=== PATIENT | female | born 1980 | race Caucasian/White ===

== ENCOUNTER 2016-09-07 11:19 | Inpatient (IN) | payer BC, OTHER ==
[2016-09-07] MEDS ORDERED: ONDANSETRON 4 MG/2 ML VIAL IVP STA (11:59)
[2016-09-07] MEDS ORDERED: IV VANCOMYCIN PER PHARMACY 1 EACH MISC MISCELLANE PRN (11:59)
[2016-09-07] MEDS ORDERED: HYDROmorphone 1 MG/ML 1 ML SYRINGE IVP STA (11:59)
[2016-09-07] MEDS ORDERED: SODIUM CHLORIDE 0.9% 1,000 ML IV STA (11:59)
[2016-09-07] MEDS ORDERED: VANCOMYCIN 1,250 MG in SODIUM CHLORIDE 0.9% 250 ML IVPB STA (12:05)
--- NOTE | 2016-09-07 12:16 | ED ---
General Adult HPI - General Chief complaint: Recheck/Abnormal Lab/Rx Stated complaint: CELLULITIS ON ABDOMEN Time Seen by Provider: 09/07/16 11:47 Source: patient, RN notes reviewed Mode of arrival: ambulatory Limitations: no limitations - History of Present Illness Initial comments: Patient 36-year-old female who presents emergency room today with chief complaint of infection to the abdominal wall. Patient does admit that she had a mole removed approximately a month ago by eddy current inspector. She states that she went back to days ago for a revision. She states that he noticed infection starting yesterday. She states that it's gotten worse and is more painful today. Patient states she started antibiotics as Keflex. Patient states she was advised by the eddy current inspector come to the emergency room if symptoms increased. - Related Data Home Medications Medication Instructions Recorded Confirmed Acetaminophen Tab [Tylenol Tab] 650 mg PO Q4H 09/07/16 09/07/16 Levothyroxine Sodium [Synthroid] 150 mcg PO DAILY 09/07/16 09/07/16 Sertraline [Zoloft] 100 mg PO DAILY 09/07/16 09/07/16 Allergies Allergy/AdvReac Type Severity Reaction Status Date / Time bacitracin Allergy Rash/Hives Verified 09/07/16 12:21 [From Neosporin ([id number])] erythromycin base Allergy Rash/Hives Verified 09/07/16 12:21 neomycin Allergy Rash/Hives Verified 09/07/16 12:21 [From Neosporin ([id number])] Penicillins Allergy Rash/Hives Verified 09/07/16 12:21 polymyxin B Allergy Rash/Hives Verified 09/07/16 12:21 [From Neosporin ([id number])] Review of Systems ROS Statement: Those systems with pertinent positive or pertinent negative responses have been documented in the HPI. ROS Other: All systems not noted in ROS Statement are negative. Past Medical History Past Medical History: Cancer, Thyroid Disorder History of Any Multi-Drug Resistant Organisms: None Reported Past Surgical History: Section Additional Past Surgical History / Comment(s): thyroidectomy Past Psychological History: No Psychological Hx Reported Smoking Status: Current every day smoker Past Alcohol Use History: Occasional Past Drug Use History: None Reported General Exam - General Exam Comments Initial Comments: General: The patient is awake and alert, in no distress, and does not appear acutely ill. Eye: Pupils are equal, round and reactive to light, extra-ocular movements are intact. No nystagmus. There is normal conjunctiva bilaterally. No signs of icterus. Ears, nose, mouth and throat: There are moist mucous membranes and no oral lesions. Neck: The neck is supple, there is no tenderness or JVD. Cardiovascular: There is a regular rate and rhythm. No murmur, rub or gallop is appreciated. Respiratory: Lungs are clear to auscultation, respirations are non-labored, breath sounds are equal. No wheezes, stridor, rales, or rhonchi. Gastrointestinal: Bowel sounds. Abdomen soft. No tenderness. No rebound tenderness. No guarding. Patient does have superficial skin infection to the abdominal wall. Incision midline. No drainage or discharge. Area does sanjiv. Musculoskeletal: Normal ROM, no tenderness. Strength 5/5. Sensation intact. Pulses equal bilaterally 2+. Neurological: A&O x 3. CN II-XII intact, There are no obvious motor or sensory deficits. Coordination appears grossly intact. Speech is normal. Skin: Cellulitis to the abdomen wall. Psychiatric: Cooperative, appropriate mood & affect, normal judgment. Limitations: no limitations Course Vital Signs 09/07/16 11:39 Temperature 99.0 F Pulse Rate 99 Respiratory 16 Rate Blood Pressure 129/75 O2 Sat by Pulse 99 Oximetry Medical Decision Making - Medical Decision Making Patient labs reviewed shows 11,000 white count. Patient will be admitted for outpatient treatment failure of the abdominal wall cellulitis. - Lab Data Result diagrams: 09/07/16 12:13 09/07/16 12:13 Lab Results 09/07/16 09/07/16 09/07/16 Range/Units 12:13 12:13 12:13 WBC 11.0 H (3.8-10.6) k/uL RBC 4.69 (3.80-5.40) m/uL Hgb 14.8 (11.4-16.0) gm/dL Hct 44.7 (34.0-46.0) % MCV 95.2 (80.0-100.0) fL MCH 31.5 (25.0-35.0) pg MCHC 33.1 (31.0-37.0) g/dL RDW 12.6 (11.5-15.5) % Plt Count 206 (150-450) k/uL Neutrophils % 81 % Lymphocytes % 12 % Monocytes % 3 % Eosinophils % 2 % Basophils % 0 % Neutrophils # 8.9 H (1.3-7.7) k/uL Lymphocytes # 1.4 (1.0-4.8) k/uL Monocytes # 0.4 (0-1.0) k/uL Eosinophils # 0.3 (0-0.7) k/uL Basophils # 0.0 (0-0.2) k/uL Sodium 143 (137-145) mmol/L Potassium 4.4 (3.5-5.1) mmol/L Chloride 108 H (98-107) mmol/L Carbon Dioxide 27 (22-30) mmol/L Anion Gap 8 mmol/L BUN 7 (7-17) mg/dL Creatinine 0.70 (0.52-1.04) mg/dL Est GFR (MDRD) Af Amer >60 (>60 ml/min/1.73 sqM) Est GFR (MDRD) Non-Af >60 (>60 ml/min/1.73 sqM) Glucose 101 H (74-99) mg/dL Calcium 9.2 (8.4-10.2) mg/dL Total Bilirubin 0.4 (0.2-1.3) mg/dL AST 18 (14-36) U/L ALT 33 (9-52) U/L Alkaline Phosphatase 72 (38-126) U/L Total Protein 7.1 (6.3-8.2) g/dL Albumin 4.2 (3.5-5.0) g/dL Urine Color Light Yellow Urine Appearance Clear (Clear) Urine pH 8.0 (5.0-8.0) Ur Specific [place] 1.003 (1.001-1.035) Urine Protein Negative (Negative) Urine Glucose (UA) Negative (Negative) Urine Ketones Negative (Negative) Urine Blood Negative (Negative) Urine Nitrate Negative (Negative) Urine Bilirubin Negative (Negative) Urine Urobilinogen <2.0 (<2.0) mg/dL Ur Leukocyte Esterase Negative (Negative) Urine HCG, Qual (Not Detectd) 09/07/16 Range/Units 12:13 WBC (3.8-10.6) k/uL RBC (3.80-5.40) m/uL Hgb (11.4-16.0) gm/dL Hct (34.0-46.0) % MCV (80.0-100.0) fL MCH (25.0-35.0) pg MCHC (31.0-37.0) g/dL RDW (11.5-15.5) % Plt Count (150-450) k/uL Neutrophils % % Lymphocytes % % Monocytes % % Eosinophils % % Basophils % % Neutrophils # (1.3-7.7) k/uL Lymphocytes # (1.0-4.8) k/uL Monocytes # (0-1.0) k/uL Eosinophils # (0-0.7) k/uL Basophils # (0-0.2) k/uL Sodium (137-145) mmol/L Potassium (3.5-5.1) mmol/L Chloride (98-107) mmol/L Carbon Dioxide (22-30) mmol/L Anion Gap mmol/L BUN (7-17) mg/dL Creatinine (0.52-1.04) mg/dL Est GFR (MDRD) Af Amer (>60 ml/min/1.73 sqM) Est GFR (MDRD) Non-Af (>60 ml/min/1.73 sqM) Glucose (74-99) mg/dL Calcium (8.4-10.2) mg/dL Total Bilirubin (0.2-1.3) mg/dL AST (14-36) U/L ALT (9-52) U/L Alkaline Phosphatase (38-126) U/L Total Protein (6.3-8.2) g/dL Albumin (3.5-5.0) g/dL Urine Color Urine Appearance (Clear) Urine pH (5.0-8.0) Ur Specific [place] (1.001-1.035) Urine Protein (Negative) Urine Glucose (UA) (Negative) Urine Ketones (Negative) Urine Blood (Negative) Urine Nitrate (Negative) Urine Bilirubin (Negative) Urine Urobilinogen (<2.0) mg/dL Ur Leukocyte Esterase (Negative) Urine HCG, Qual Not Detected (Not Detectd) Disposition Clinical Impression: Abdominal wall cellulitis, Failure of outpatient treatment Disposition: ADMITTED IP TO THIS HOSP Condition: Good Time of Disposition: 13:12
[2016-09-07 12:30] LABS: Basophils % (A) 0 %; CH 32.5; CHCM 34.3; Eosinophils # (A) 0.3 k/uL (0-0.7); Eosinophils % (A) 2 %; HCT 44.7 % (34.0-46.0); HDW 2.28; HGB 14.8 gm/dL (11.4-16.0); Luc % (Auto) 1; Lymphocytes # (A) 1.4 k/uL (1.0-4.8); Lymphocytes % (A) 12 %; MCH 31.5 pg (25.0-35.0); MCHC 33.1 g/dL (31.0-37.0); MCV 95.2 fL (80.0-100.0); Mean Platelet Volume 7.8; Monocytes # (A) 0.4 k/uL (0-1.0); Monocytes % (A) 3 %; Neutrophils # (A) 8.9 k/uL (1.3-7.7); Neutrophils % (A) 81 %; RBC 4.69 m/uL (3.80-5.40); RDW 12.6 % (11.5-15.5); WBC (Perox) 11.06
[2016-09-07 12:32] LABS: Appearance,Urine Clear (Clear); Bilirubin,Urine Negative (Negative); Glucose,Urine (UA) Negative (Negative); Ketones,Urine Negative (Negative); Leukocyte Esterase,Urine Negative (Negative); Nitrite,Urine Negative (Negative); Protein,Urine Negative (Negative); Specific Gravity,Urine 1.003 (1.001-1.035); UA Billing (MACRO vs. MICRO) CHEM; Urobilinogen,Urine <2.0 mg/dL (<2.0)
[2016-09-07 12:36] LABS: ALT 33 U/L (9-52); AST 18 U/L (14-36); Alkaline Phosphatase 72 U/L (38-126); Anion Gap 8 mmol/L; Blood Urea Nitrogen 7 mg/dL (7-17); Calcium 9.2 mg/dL (8.4-10.2); Carbon Dioxide 27 mmol/L (22-30); Chloride 108 mmol/L (98-107); Glucose 101 mg/dL (74-99); Non-African American GFR(MDRD) >60 (>60 ml/min/1.73 sqM); Potassium 4.4 mmol/L (3.5-5.1); Sodium 143 mmol/L (137-145); Total Bilirubin 0.4 mg/dL (0.2-1.3); Total Protein 7.1 g/dL (6.3-8.2)
[2016-09-07] MEDS ORDERED: ONDANSETRON 4 MG/2 ML VIAL IVP PRN (13:13)
[2016-09-07] MEDS ORDERED: SODIUM CHLORIDE 0.9% 1,000 ML IV ONE (13:13)
[2016-09-07] MEDS ORDERED: LORazepam 2 MG/ML SYRINGE IV PRN (13:13)
[2016-09-07] MEDS ORDERED: NALOXONE 0.4 MG/ML 1 ML VIAL IV PRN (13:13)
[2016-09-07] MEDS ORDERED: ACETAMINOPHEN TAB 325 MG TAB PO PRN (13:13)
[2016-09-07 14:21] VITALS: BMI 24.1
[2016-09-07] MEDS: HYDROcodone/APAP 5-325MG 1 EACH TAB PO PRN (14:31)
[2016-09-07] MEDS: HYDROmorphone 1 MG/ML 1 ML SYRINGE IV PRN ×2 (15:31→20:13)
--- NOTE | 2016-09-07 16:37 | P.HPIM ---
History of Present Illness H&P Date: 09/07/16 Chief Complaint: cellulitis 36-year-old female who recently underwent a more mobile and month ago on her abdomen and thereafter went to her color consultant for a wider excision of the lesion around her umbilicus on Friday. Patient was then noted to have some erythema and burning around the incision site and hence went to her color consultant on Friday. Patient was started on kelex and a border was drawn on her abdomen and was told if the erythema gets outside the border patient was to go to the ER. Patient stated that her pain has been stable denies having any associated fevers. Patient denies having any discharge from the incision site. And no worsening swelling is also reported. Denies having any change in bowel habits, no urinary urgency or frequency, no chills, no nausea, no vomiting. Review of Systems All systems: negative (Noted in HPI) Past Medical History Past Medical History: Cancer, Thyroid Disorder Additional Past Medical History / Comment(s): thyroid cancer History of Any Multi-Drug Resistant Organisms: None Reported Past Surgical History: Section Additional Past Surgical History / Comment(s): thyroidectomy Past Psychological History: No Psychological Hx Reported Smoking Status: Current every day smoker Past Alcohol Use History: Occasional Past Drug Use History: None Reported - Past Family History Mother Family Medical History: No Reported History Medications and Allergies Home Medications Medication Instructions Recorded Confirmed Type Acetaminophen Tab [Tylenol Tab] 650 mg PO Q4H 09/07/16 09/07/16 History Levothyroxine Sodium [Synthroid] 150 mcg PO DAILY 09/07/16 09/07/16 History Sertraline [Zoloft] 100 mg PO DAILY 09/07/16 09/07/16 History Allergies Allergy/AdvReac Type Severity Reaction Status Date / Time bacitracin Allergy Rash/Hives Verified 09/07/16 12:21 [From Neosporin ([id number])] erythromycin base Allergy Rash/Hives Verified 09/07/16 12:21 neomycin Allergy Rash/Hives Verified 09/07/16 12:21 [From Neosporin ([id number])] Penicillins Allergy Rash/Hives Verified 09/07/16 12:21 polymyxin B Allergy Rash/Hives Verified 09/07/16 12:21 [From Neosporin ([id number])] Physical Exam Vitals: Vital Signs Temp Pulse Pulse Resp BP BP Pulse Ox 09/07/16 15:45 97.9 F 72 18 125/67 97 09/07/16 14:04 98.1 F 71 18 126/70 100 09/07/16 13:40 97.7 F 74 16 116/75 99 Intake and Output 09/07/16 09/07/16 09/07/16 06:59 14:59 22:59 Other: Weight 65.8 kg Patient Weight 09/08/16 06:59 Weight 65.8 kg Gen. appearance alert oriented 3 in no distress Neck is supple no JVD Lungs good air entry clear to auscultation Heart regular rate and rhythm no murmurs appreciated Abdomen is soft there is a incision inferiorly to the umbilicus which appears intact no underlying induration is noted large area of erythema surrounding the umbilicus slightly warm to touch. Neurologically no focal motor or sensory deficits appreciated. Results CBC & Chem 7: 09/07/16 12:13 09/07/16 12:13 Thrombosis Risk Factor Assmnt - Choose All That Apply Any of the Below Risk Factors Present?: Yes Each Factor Represents 1 point: Oral contraceptives or hormone replacement therapy, Varicose veins Other Risk Factors: No Other congenital or acquired thrombophilia - If yes, enter type in comment: No Thrombosis Risk Factor Assessment Total Risk Factor Score: 2 Thrombosis Risk Factor Assessment Level: Low Risk Assessment and Plan Plan: #1 abdominal wall cellulitis failed outpatient treatment #2 history of skin cancer Plan Patient has tolerated keflex. We'll change antibiotics to IV cefazolin 2 g every 8 hours. If patient shows improvement in the next 24 hours we'll likely discharge the patient on oral keflex. Patient probably has not had enough doses to make an effect on her cellulitis.
[2016-09-07] MEDS: ceFAZolin 2 GM in SODIUM CHLORIDE 0.9% 100 ML IVPB SCH (17:36)
[2016-09-07] MEDS ORDERED: IBUPROFEN 400 MG TAB PO PRN (20:18)
[2016-09-07] MEDS ORDERED: VANCOMYCIN 1,250 MG in SODIUM CHLORIDE 0.9% 250 ML IVPB SCH (21:00)
[2016-09-08] MEDS: HYDROmorphone 1 MG/ML 1 ML SYRINGE IV PRN ×3 (00:18→14:43)
[2016-09-08] MEDS: ceFAZolin 2 GM in SODIUM CHLORIDE 0.9% 100 ML IVPB SCH ×3 (00:19→16:18)
[2016-09-08 07:44] LABS: Basophils % (A) 1 %; CH 32.2; CHCM 33.7; Eosinophils # (A) 0.3 k/uL (0-0.7); Eosinophils % (A) 4 %; HCT 37.7 % (34.0-46.0); HDW 2.29; HGB 12.7 gm/dL (11.4-16.0); Luc # (Auto) 0.18; Luc % (Auto) 3; Lymphocytes # (A) 2.3 k/uL (1.0-4.8); Lymphocytes % (A) 33 %; MCH 32.1 pg (25.0-35.0); MCHC 33.6 g/dL (31.0-37.0); MCV 95.7 fL (80.0-100.0); Monocytes # (A) 0.3 k/uL (0-1.0); Monocytes % (A) 5 %; Neutrophils # (A) 3.8 k/uL (1.3-7.7); Neutrophils % (A) 55 %; RBC 3.94 m/uL (3.80-5.40); RDW 12.6 % (11.5-15.5); WBC 6.9 k/uL (3.8-10.6); WBC (Perox) 7.31
[2016-09-08 07:48] LABS: ALT 31 U/L (9-52); AST 13 U/L (14-36); Alkaline Phosphatase 55 U/L (38-126); Anion Gap 6 mmol/L; Blood Urea Nitrogen 7 mg/dL (7-17); Calcium 8.1 mg/dL (8.4-10.2); Carbon Dioxide 27 mmol/L (22-30); Chloride 108 mmol/L (98-107); Glucose 89 mg/dL (74-99); Non-African American GFR(MDRD) >60 (>60 ml/min/1.73 sqM); Potassium 4.1 mmol/L (3.5-5.1); Sodium 141 mmol/L (137-145); Total Bilirubin 0.3 mg/dL (0.2-1.3); Total Protein 5.6 g/dL (6.3-8.2)
[2016-09-08] MEDS: HYDROcodone/APAP 5-325MG 1 EACH TAB PO PRN ×2 (08:27→16:17)
[2016-09-08 15:05] VITALS: BP 118/71; PULSE 72; RESP 19; TEMP 97.7
--- NOTE | 2016-09-08 19:26 | P.DS ---
Providers Date of admission: 09/07/16 13:13 Expected date of discharge: 09/08/16 Attending physician: Flor Duffy Primary care physician: Stated None Hospital Course: Chief Complaint: cellulitis 36-year-old female who recently underwent a more mobile and month ago on her abdomen and thereafter went to her business analysis specialist for a wider excision of the lesion around her umbilicus on Friday. Patient was then noted to have some erythema and burning around the incision site and hence went to her business analysis specialist on Friday. Patient was started on kelex and a border was drawn on her abdomen and was told if the erythema gets outside the border patient was to go to the ER. Patient stated that her pain has been stable denies having any associated fevers. Patient denies having any discharge from the incision site. And no worsening swelling is also reported. Denies having any change in bowel habits, no urinary urgency or frequency, no chills, no nausea, no vomiting. Review of Systems All systems: negative (Noted in HPI) Past Medical History Past Medical History: Cancer, Thyroid Disorder Additional Past Medical History / Comment(s): thyroid cancer History of Any Multi-Drug Resistant Organisms: None Reported Past Surgical History: Section Additional Past Surgical History / Comment(s): thyroidectomy Past Psychological History: No Psychological Hx Reported Smoking Status: Current every day smoker Past Alcohol Use History: Occasional Past Drug Use History: None Reported - Past Family History Mother Family Medical History: No Reported History Medications and Allergies Home Medications Medication Instructions Recorded Confirmed Type Acetaminophen Tab [Tylenol Tab] 650 mg PO Q4H 09/07/16 09/07/16 History Levothyroxine Sodium [Synthroid] 150 mcg PO DAILY 09/07/16 09/07/16 History Sertraline [Zoloft] 100 mg PO DAILY 09/07/16 09/07/16 History Allergies Allergy/AdvReac Type Severity Reaction Status Date / Time bacitracin Allergy Rash/Hives Verified 09/07/16 12:21 [From Neosporin ([id number])] erythromycin base Allergy Rash/Hives Verified 09/07/16 12:21 neomycin Allergy Rash/Hives Verified 09/07/16 12:21 [From Neosporin ([id number])] Penicillins Allergy Rash/Hives Verified 09/07/16 12:21 polymyxin B Allergy Rash/Hives Verified 09/07/16 12:21 [From Neosporin ([id number])] Physical Exam Vitals: Vital Signs Temp Pulse Pulse Resp BP BP Pulse Ox 09/07/16 15:45 97.9 F 72 18 125/67 97 09/07/16 14:04 98.1 F 71 18 126/70 100 09/07/16 13:40 97.7 F 74 16 116/75 99 Intake and Output 09/07/16 09/07/16 09/07/16 06:59 14:59 22:59 Other: Weight 65.8 kg Patient Weight 09/08/16 06:59 Weight 65.8 kg Gen. appearance alert oriented 3 in no distress Neck is supple no JVD Lungs good air entry clear to auscultation Heart regular rate and rhythm no murmurs appreciated Abdomen is soft there is a incision inferiorly to the umbilicus which appears intact no underlying induration is noted large area of erythema surrounding the umbilicus slightly warm to touch. significantly improved from admission currently inside the marked area. Neurologically no focal motor or sensory deficits appreciated. Re Assessment and Plan Plan: #1 abdominal wall cellulitis failed outpatient treatment #2 history of skin cancer D/c home on keflex fro 10 days. Follow up with Dermatology Dr Shepard Patient Condition at Discharge: Good Plan - Discharge Summary New Discharge Prescriptions: Cephalexin [Keflex] 250 mg PO AC-TID #10 capsule HYDROcodone/APAP 5-325MG [[place] 5-325] 1 each PO Q4HR PRN #30 tab PRN Reason: Moderate Pain Discharge Medication List Acetaminophen Tab [Tylenol] 650 mg PO Q4H 09/07/16 [History] Levothyroxine Sodium [Synthroid] 150 mcg PO DAILY 09/07/16 [History] Sertraline [Zoloft] 100 mg PO DAILY 09/07/16 [History] Cephalexin [Keflex] 250 mg PO AC-TID #10 capsule 09/08/16 [Rx] HYDROcodone/APAP 5-325MG [[place] 5-325] 1 each PO Q4HR PRN #30 tab 09/08/16 [Rx] Follow up Appointment(s)/Referral(s): Meghana Shepard MD [REFERRING] - 1 Week None,Stated [Primary Care Provider] - 1-2 days Patient Instructions/Handouts: Cellulitis (DC) Activity/Diet/Wound Care/Special Instructions: Call your Dr if symptoms return or worsen or you start experiencing fevers. Discharge Disposition: HOME SELF-CARE
== END 2016-09-08 17:43 | disposition home or self-care (01) | DRG 603 ==
LOC: EC 11:19 → 6PED 13:13
PROVIDERS: ADMIT Hospitalist; ATTEND Hospitalist
DX: L03.311 Cellulitis of abdominal wall (principal); E89.0 Postprocedural hypothyroidism; I83.90 Asymptomatic varicose veins of unspecified lower extremity; F17.200 Nicotine dependence, unspecified, uncomplicated; Z88.1 Allergy status to other antibiotic agents; Z88.0 Allergy status to penicillin; Z85.850 Personal history of malignant neoplasm of thyroid; Z85.828 Personal history of other malignant neoplasm of skin; Z98.890 Other specified postprocedural states; Z79.899 Other long term (current) drug therapy
CPT/HCPCS: 36415; 80053; 81003; 81025; 85025; 87040; 87086; 96361; 96365; 96375; 99284

== ENCOUNTER → 2017-12-26 | Outpatient (CLI) | payer OTHER ==
--- NOTE | 2017-12-26 13:03 | US ---
EXAMINATION TYPE: US pelvis complete transvag DATE OF EXAM: 12/26/2017 COMPARISON: NONE CLINICAL HISTORY: N93.0 POSTCOITAL BLEEDING,N92.1 MENORRHAGIA. TECHNIQUE: Transvaginal (TV) and Transabdominal (TA) . Transabdominal sonographic images of the pel vis were acquired. Transvaginal sonographic images were medically necessary to better assess the fol lowing anatomy: uterus and ovaries. Date of LMP: 2 wks ago, still spotting EXAM MEASUREMENTS: Uterus: 7.4 x 4.4 x 4.6 cm Endometrial Stripe: 0.4 cm Right Ovary: 4.5 x 2.2 x 2.8 cm Left Ovary: 5.4 x 3.6 x 3.9 cm 1. Uterus: Retroverted wnl 2. Endometrium: wnl 3. Right Ovary: rov is surrounded by large mixed heterogeneous vascular tissue measuring about 7.2 x 3.3 x 6.0cm 4. Left Ovary: left ovary is not completely normal in appearance either; within the luis is a 2.8cm c omplex cystic with leveling debris structure; both ovaries demonstrate increased vascularity 5. Bilateral Adnexa: see above 6. Posterior cul-de-sac: no free fluid seen Retroverted uterus is seen. No free fluid is seen in pelvic cul-de-sac. Right ovary is prominent in size with heterogeneous solid and cystic tissue. Left ovary is also promi nent with heterogeneous solid and cystic tissue. Bilateral vascularity is seen. Some oval anechoic ar eas are noted bilaterally. IMPRESSION: Prominent hypervascular ovaries, advise short-term ultrasound follow-up in 6 weeks' time to reassess.
== END | disposition home or self-care (01) ==
LOC: RADUSWWP 12:11
PROVIDERS: ATTEND Obstetrics & Gynecology
DX: N93.0 Postcoital and contact bleeding (principal); N92.1 Excessive and frequent menstruation with irregular cycle
CPT/HCPCS: 76830; 76856

== ENCOUNTER 2018-04-09 17:12 | Inpatient (IN) | payer OTHER ==
[2018-04-09] MEDS ORDERED: MORPHINE SULFATE 4 MG/ML SYRINGE IVP STA (18:06)
[2018-04-09] MEDS ORDERED: SODIUM CHLORIDE 0.9% 500 ML IV ONE (18:06)
[2018-04-09 18:22] LABS: Basophils # (A) 0.1 k/uL (0-0.2); Basophils % (A) 0 %; Eosinophils # (A) 0.3 k/uL (0-0.7); Eosinophils % (A) 1 %; HCT 40.6 % (34.0-46.0); HGB 13.4 gm/dL (11.4-16.0); Lymphocytes % (A) 5 %; MCHC 32.9 g/dL (31.0-37.0); MCV 91.2 fL (80.0-100.0); Mean Platelet Volume 7.7; Monocytes # (A) 0.4 k/uL (0-1.0); Monocytes % (A) 2 %; Neutrophils % (A) 91 %; Platelet Count 213 k/uL (150-450); RBC 4.45 m/uL (3.80-5.40); RDW 13.2 % (11.5-15.5); WBC 20.8 k/uL (3.8-10.6)
[2018-04-09 18:23] LABS: Appearance,Urine Clear (Clear); Bacteria,Urine Rare /hpf; Bilirubin,Urine Negative (Negative); Blood,Urine Negative (Negative); Color,Urine Light Yellow; Glucose,Urine (UA) Negative (Negative); Ketones,Urine 1+ (Negative); Leukocyte Esterase,Urine Small (Negative); Mucus,Urine Rare /hpf; Nitrite,Urine Negative (Negative); PH, Urine 7.5 (5.0-8.0); Protein,Urine Negative (Negative); RBC,Urine 1 /hpf (0-5); Specific Gravity,Urine 1.005 (1.001-1.035); Squamous Epithelial Cell,Urine 1 /hpf (0-4); Urobilinogen,Urine <2.0 mg/dL (<2.0); WBC,Urine 2 /hpf (0-5)
[2018-04-09 18:31] LABS: ALT 24 U/L (9-52); AST 17 U/L (14-36); Albumin 3.8 g/dL (3.5-5.0); Alkaline Phosphatase 75 U/L (38-126); Amylase 44 U/L (30-110); Anion Gap 7 mmol/L; Blood Urea Nitrogen 8 mg/dL (7-17); Calcium 8.4 mg/dL (8.4-10.2); Carbon Dioxide 22 mmol/L (22-30); Chloride 110 mmol/L (98-107); Glucose 89 mg/dL (74-99); Lipase 57 U/L (23-300); Potassium 3.9 mmol/L (3.5-5.1); Sodium 139 mmol/L (137-145); Total Bilirubin 0.5 mg/dL (0.2-1.3); Total Protein 6.5 g/dL (6.3-8.2)
--- NOTE | 2018-04-09 18:39 | ED ---
General Adult HPI - General Chief complaint: Abdominal Pain Stated complaint: ABDOMINAL PAIN Time Seen by Provider: 04/09/18 17:59 Source: patient, RN notes reviewed, old records reviewed Mode of arrival: ambulatory Limitations: no limitations - History of Present Illness Initial comments: 38-year-old female presenting with 1 day of generalized abdominal pain. Patient denies any nausea or vomiting. She complains of some distention and generalized pain. This pain is worsened over the past 12 hours. She does report several episodes of diarrhea although she has chronic diarrhea no change from baseline. No rectal bleeding. Patient is found to have fever in triage. Denies dysuria. Denies vaginal bleeding. She has had hysterectomy and laparoscopic abdominal surgery for endometriosis. She still has her gallbladder and appendix. - Related Data Home Medications Medication Instructions Recorded Confirmed Levothyroxine Sodium [Synthroid] 150 mcg PO DAILY 09/07/16 04/09/18 Sertraline [Zoloft] 100 mg PO DAILY 09/07/16 04/09/18 Norethindrone-E.estradiol-Iron 1 tab PO HS 04/09/18 04/09/18 [Microgestin 24 Fe 1 mg-20 Mcg] Allergies Allergy/AdvReac Type Severity Reaction Status Date / Time bacitracin Allergy Rash/Hives Verified 04/09/18 18:11 [From Neosporin ([id number])] erythromycin base Allergy Rash/Hives Verified 04/09/18 18:11 neomycin Allergy Rash/Hives Verified 04/09/18 18:11 [From Neosporin ([id number])] Penicillins Allergy Rash/Hives Verified 04/09/18 18:11 polymyxin B Allergy Rash/Hives Verified 04/09/18 18:11 [From Neosporin ([id number])] Review of Systems ROS Statement: Those systems with pertinent positive or pertinent negative responses have been documented in the HPI. ROS Other: All systems not noted in ROS Statement are negative. Past Medical History Past Medical History: Cancer, Thyroid Disorder Additional Past Medical History / Comment(s): thyroid cancer History of Any Multi-Drug Resistant Organisms: None Reported Past Surgical History: Section Additional Past Surgical History / Comment(s): thyroidectomy Past Psychological History: No Psychological Hx Reported Smoking Status: Current every day smoker Past Alcohol Use History: Occasional Past Drug Use History: None Reported - Past Family History Mother Family Medical History: No Reported History General Exam Limitations: no limitations General appearance: alert, in no apparent distress Head exam: Present: atraumatic, normocephalic Eye exam: Present: normal appearance, PERRL ENT exam: Present: normal exam Neck exam: Present: normal inspection. Absent: tenderness, meningismus Respiratory exam: Present: normal lung sounds bilaterally. Absent: respiratory distress, wheezes Cardiovascular Exam: Present: regular rate, normal rhythm GI/Abdominal exam: Present: soft, distended, tenderness (Generalized tenderness to palpation, worse in the right lower quadrant). Absent: guarding, rebound Extremities exam: Present: normal inspection, normal capillary refill. Absent: pedal edema Neurological exam: Present: alert, oriented X3, CN II-XII intact. Absent: motor sensory deficit Psychiatric exam: Present: normal affect, normal mood Skin exam: Present: warm, dry, intact. Absent: cyanosis, diaphoretic Course Vital Signs 04/09/18 04/09/18 04/09/18 17:42 19:30 20:20 Temperature 100.3 F H 98.9 F 98.3 F Pulse Rate 87 88 91 Respiratory 20 16 16 Rate Blood Pressure 142/83 154/79 130/83 O2 Sat by Pulse 100 100 99 Oximetry Medical Decision Making - Medical Decision Making 38 yo female with generalized abdominal pain and low-grade fever. Patient has generalized abdominal pain although this is localized to the right lower quadrant. Laboratory studies reveal significantly elevated white blood cell count 20.8. Normal electrolytes. Urinalysis is positive for ketones. CT is obtained, significant for dilated fluid-filled appendix at 8 mm. This is likely early appendicitis. Case discussed with Dr. East, for possible surgical intervention. He will take patient to the operating room this evening. Patient declines on-call surgeon, requesting alternate. Dr. East will accept. - Lab Data Result diagrams: 04/09/18 18:10 04/09/18 18:10 Lab Results 04/09/18 04/09/18 04/09/18 Range/Units 18:10 18:10 18:10 WBC 20.8 H (3.8-10.6) k/uL RBC 4.45 (3.80-5.40) m/uL Hgb 13.4 (11.4-16.0) gm/dL Hct 40.6 (34.0-46.0) % MCV 91.2 (80.0-100.0) fL MCH 30.0 (25.0-35.0) pg MCHC 32.9 (31.0-37.0) g/dL RDW 13.2 (11.5-15.5) % Plt Count 213 (150-450) k/uL Neutrophils % 91 % Lymphocytes % 5 % Monocytes % 2 % Eosinophils % 1 % Basophils % 0 % Neutrophils # 19.0 H (1.3-7.7) k/uL Lymphocytes # 1.0 (1.0-4.8) k/uL Monocytes # 0.4 (0-1.0) k/uL Eosinophils # 0.3 (0-0.7) k/uL Basophils # 0.1 (0-0.2) k/uL Sodium 139 (137-145) mmol/L Potassium 3.9 (3.5-5.1) mmol/L Chloride 110 H (98-107) mmol/L Carbon Dioxide 22 (22-30) mmol/L Anion Gap 7 mmol/L BUN 8 (7-17) mg/dL Creatinine 0.57 (0.52-1.04) mg/dL Est GFR (CKD-EPI)AfAm >90 (>60 ml/min/1.73 sqM) Est GFR (CKD-EPI)NonAf >90 (>60 ml/min/1.73 sqM) Glucose 89 (74-99) mg/dL Plasma Lactic Acid Eren (0.7-2.0) mmol/L Calcium 8.4 (8.4-10.2) mg/dL Total Bilirubin 0.5 (0.2-1.3) mg/dL AST 17 (14-36) U/L ALT 24 (9-52) U/L Alkaline Phosphatase 75 (38-126) U/L Total Protein 6.5 (6.3-8.2) g/dL Albumin 3.8 (3.5-5.0) g/dL Amylase 44 (30-110) U/L Lipase 57 (23-300) U/L Urine Color Urine Appearance (Clear) Urine pH (5.0-8.0) Ur Specific [place] (1.001-1.035) Urine Protein (Negative) Urine Glucose (UA) (Negative) Urine Ketones (Negative) Urine Blood (Negative) Urine Nitrite (Negative) Urine Bilirubin (Negative) Urine Urobilinogen (<2.0) mg/dL Ur Leukocyte Esterase (Negative) Urine RBC (0-5) /hpf Urine WBC (0-5) /hpf Ur Squamous Epith Cells (0-4) /hpf Urine Bacteria (None) /hpf Urine Mucus (None) /hpf Urine HCG, Qual Not Detected (Not Detectd) 04/09/18 04/09/18 Range/Units 18:10 18:59 WBC (3.8-10.6) k/uL RBC (3.80-5.40) m/uL Hgb (11.4-16.0) gm/dL Hct (34.0-46.0) % MCV (80.0-100.0) fL MCH (25.0-35.0) pg MCHC (31.0-37.0) g/dL RDW (11.5-15.5) % Plt Count (150-450) k/uL Neutrophils % % Lymphocytes % % Monocytes % % Eosinophils % % Basophils % % Neutrophils # (1.3-7.7) k/uL Lymphocytes # (1.0-4.8) k/uL Monocytes # (0-1.0) k/uL Eosinophils # (0-0.7) k/uL Basophils # (0-0.2) k/uL Sodium (137-145) mmol/L Potassium (3.5-5.1) mmol/L Chloride (98-107) mmol/L Carbon Dioxide (22-30) mmol/L Anion Gap mmol/L BUN (7-17) mg/dL Creatinine (0.52-1.04) mg/dL Est GFR (CKD-EPI)AfAm (>60 ml/min/1.73 sqM) Est GFR (CKD-EPI)NonAf (>60 ml/min/1.73 sqM) Glucose (74-99) mg/dL Plasma Lactic Acid Eren 1.0 (0.7-2.0) mmol/L Calcium (8.4-10.2) mg/dL Total Bilirubin (0.2-1.3) mg/dL AST (14-36) U/L ALT (9-52) U/L Alkaline Phosphatase (38-126) U/L Total Protein (6.3-8.2) g/dL Albumin (3.5-5.0) g/dL Amylase (30-110) U/L Lipase (23-300) U/L Urine Color Light Yellow Urine Appearance Clear (Clear) Urine pH 7.5 (5.0-8.0) Ur Specific [place] 1.005 (1.001-1.035) Urine Protein Negative (Negative) Urine Glucose (UA) Negative (Negative) Urine Ketones 1+ H (Negative) Urine Blood Negative (Negative) Urine Nitrite Negative (Negative) Urine Bilirubin Negative (Negative) Urine Urobilinogen <2.0 (<2.0) mg/dL Ur Leukocyte Esterase Small H (Negative) Urine RBC 1 (0-5) /hpf Urine WBC 2 (0-5) /hpf Ur Squamous Epith Cells 1 (0-4) /hpf Urine Bacteria Rare H (None) /hpf Urine Mucus Rare H (None) /hpf Urine HCG, Qual (Not Detectd) Disposition Clinical Impression: Acute appendicitis Disposition: ADMITTED IP TO THIS [facility] Condition: Stable Is patient prescribed a controlled substance at d/c from ED?: No Referrals: Abhishek Tristan MD [Primary Care Provider] - 1-2 days Decision to Admit Reason: Admit from EC Decision Date: 04/09/18 Decision Time: 19:45
--- NOTE | 2018-04-09 19:42 | CT ---
EXAMINATION TYPE: CT abdomen pelvis w con DATE OF EXAM: 04/09/2018 COMPARISON: None HISTORY: ABDOMINAL PAIN X1 DAY CT DLP: 441.9 mGycm Automated exposure control for dose reduction was used. TECHNIQUE: Helical acquisition of images was performed from the lung bases through the pelvis. CONTRAST: Performed without Oral Contrast and with IV Contrast, patient injected with 100 mL of Isovue 300. FINDINGS: The lung bases are clear. There is no pleural effusion. Heart size is normal. Liver spleen pancreas gallbladder appear normal. Bile ducts are not dilated. There is no adrenal mass . Kidneys show satisfactory contrast opacification. There is no hydronephrosis. There is no retroperi toneal adenopathy. There is some minimal free fluid in the pelvis. Bladder distends smoothly. Uterus is retroverted. There is mild wall thickening of the rectosigmoid colon. There is no evidence of dive rticulosis. The terminal ileum appears normal. The appendix is fluid-filled and distended to 8 mm. IMPRESSION: APPENDIX IS FLUID-FILLED AND MEASURES 8 MM. THIS IS SOMEWHAT SUSPICIOUS FOR APPENDICITIS. CLINICAL CO RRELATION NEEDED. THERE IS MILD WALL THICKENING OF THE RECTOSIGMOID COLON SUGGESTIVE OF A NONSPECIFIC COLITIS. MINIMAL FREE FLUID IN THE CUL-DE-SAC..
[2018-04-09] MEDS ORDERED: KETOROLAC 30 MG/ML 1 ML VIAL IVP STA (19:54)
[2018-04-09] MEDS ORDERED: LEVOFLOXACIN 500MG-D5W PMX 500 MG in DEXTROSE/WATER 1 100ML.BAG IVPB STA (19:54)
[2018-04-09] MEDS: SODIUM CHLORIDE 0.9% 1,000 ML IV SCH (20:19)
[2018-04-09] MEDS ORDERED: metroNIDAZOLE-NS PMX 500 MG in SALINE 1 100ML.BAG IVPB STA (20:23)
[2018-04-09] MEDS ORDERED: NALOXONE 0.4 MG/ML 1 ML VIAL IV PRN ×2 (20:24→22:57)
[2018-04-09 20:39] LABS: Partial Thromboplastin Time 23.6 sec (22.0-30.0); Prothrombin Time 9.7 sec (9.0-12.0)
--- NOTE | 2018-04-09 21:19 | P.GSHP ---
History of Present Illness H&P Date: 04/09/18 38-year-old female presents to the emergency department with complaints of abdominal pain. She states that the abdominal pain began 24 hours ago and was generalized. She states that the pain seemed to localize to the right lower quadrant. She states that she has had no appetite and has not eaten in approximately 24 hours. She states she has had some nausea but no emesis episodes. She states that she did have a subjective fever but is unsure. She denies any chest pain or shortness of breath. She states she has not had this pain previously. She states that she has had previous abdominal surgery with laparoscopy for endometriosis. She states that this pain does not feel like endometriosis pain. Workup was completed in the emergency department and the patient does have leukocytosis of [address] of the abdomen did show a thickened appendix with some free fluid in the pelvis. This is very suspicious for appendicitis. - Review of Systems All systems: negative Past Medical History Past Medical History: Cancer, Thyroid Disorder Additional Past Medical History / Comment(s): thyroid cancer History of Any Multi-Drug Resistant Organisms: None Reported Past Surgical History: Section Additional Past Surgical History / Comment(s): thyroidectomy Past Psychological History: No Psychological Hx Reported Smoking Status: Current every day smoker Past Alcohol Use History: Occasional Past Drug Use History: None Reported - Past Family History Mother Family Medical History: No Reported History Medications and Allergies Home Medications Medication Instructions Recorded Confirmed Type Levothyroxine Sodium [Synthroid] 150 mcg PO DAILY 09/07/16 04/09/18 History Sertraline [Zoloft] 100 mg PO DAILY 09/07/16 04/09/18 History Norethindrone-E.estradiol-Iron 1 tab PO HS 04/09/18 04/09/18 History [Microgestin 24 Fe 1 mg-20 Mcg] Allergies Allergy/AdvReac Type Severity Reaction Status Date / Time bacitracin Allergy Rash/Hives Verified 04/09/18 18:11 [From Neosporin ([id number])] erythromycin base Allergy Rash/Hives Verified 04/09/18 18:11 neomycin Allergy Rash/Hives Verified 04/09/18 18:11 [From Neosporin ([id number])] Penicillins Allergy Rash/Hives Verified 04/09/18 18:11 polymyxin B Allergy Rash/Hives Verified 04/09/18 18:11 [From Neosporin ([id number])] Surgical - Exam Osteopathic Statement: *. No significant issues noted on an osteopathic structural exam other than those noted in the History and Physical/Consult. Vital Signs Temp Pulse Resp BP Pulse Ox 100.3 F H 87 20 142/83 100 04/09/18 17:42 04/09/18 17:42 04/09/18 17:42 04/09/18 17:42 04/09/18 17:42 - General well nourished, no distress - Eyes PERRL, normal ocular movement - ENT normal mucosa, no hearing loss - Neck trachea midline - Respiratory normal respiratory effort - Abdomen Soft, tender to palpation in the right lower quadrant, nondistended, no rebound , no guarding - Neurologic normal coordination, normal sensation - Psychiatric oriented to time, oriented to person, oriented to place, speech is normal, memory intact Results - Labs 04/09/18 18:10 04/09/18 18:10 Abnormal Lab Results - Last 24 Hours (Table) 04/09/18 04/09/18 04/09/18 Range/Units 18:10 18:10 18:10 WBC 20.8 H (3.8-10.6) k/uL Neutrophils # 19.0 H (1.3-7.7) k/uL Chloride 110 H (98-107) mmol/L Urine Ketones 1+ H (Negative) Ur Leukocyte Esterase Small H (Negative) Urine Bacteria Rare H (None) /hpf Urine Mucus Rare H (None) /hpf Diabetes panel 04/09/18 Range/Units 18:10 Sodium 139 (137-145) mmol/L Potassium 3.9 (3.5-5.1) mmol/L Chloride 110 H (98-107) mmol/L Carbon Dioxide 22 (22-30) mmol/L BUN 8 (7-17) mg/dL Creatinine 0.57 (0.52-1.04) mg/dL Glucose 89 (74-99) mg/dL Calcium 8.4 (8.4-10.2) mg/dL AST 17 (14-36) U/L ALT 24 (9-52) U/L Alkaline Phosphatase 75 (38-126) U/L Total Protein 6.5 (6.3-8.2) g/dL Albumin 3.8 (3.5-5.0) g/dL Calcium panel 04/09/18 Range/Units 18:10 Calcium 8.4 (8.4-10.2) mg/dL Albumin 3.8 (3.5-5.0) g/dL Pituitary panel 04/09/18 Range/Units 18:10 Sodium 139 (137-145) mmol/L Potassium 3.9 (3.5-5.1) mmol/L Chloride 110 H (98-107) mmol/L Carbon Dioxide 22 (22-30) mmol/L BUN 8 (7-17) mg/dL Creatinine 0.57 (0.52-1.04) mg/dL Glucose 89 (74-99) mg/dL Calcium 8.4 (8.4-10.2) mg/dL Adrenal panel 04/09/18 Range/Units 18:10 Sodium 139 (137-145) mmol/L Potassium 3.9 (3.5-5.1) mmol/L Chloride 110 H (98-107) mmol/L Carbon Dioxide 22 (22-30) mmol/L BUN 8 (7-17) mg/dL Creatinine 0.57 (0.52-1.04) mg/dL Glucose 89 (74-99) mg/dL Calcium 8.4 (8.4-10.2) mg/dL Total Bilirubin 0.5 (0.2-1.3) mg/dL AST 17 (14-36) U/L ALT 24 (9-52) U/L Alkaline Phosphatase 75 (38-126) U/L Total Protein 6.5 (6.3-8.2) g/dL Albumin 3.8 (3.5-5.0) g/dL - Imaging CT scan - abdomen: report reviewed, image reviewed CT scan - chest: report reviewed, image reviewed (CT of the abdomen and pelvis reviewed, dilated appendix noted with some fluid noted around the area) Assessment and Plan (1) Acute appendicitis Narrative/Plan: 38-year-old female with acute appendicitis We'll begin antibiotics Keep patient nothing by mouth Begin IV fluid resuscitation Plan for OR for laparoscopic appendectomy Current Visit: Yes Status: Acute Code(s): K35.80 - UNSPECIFIED ACUTE APPENDICITIS SNOMED Code(s): 22009915
[2018-04-09] MEDS ORDERED: ACETAMINOPHEN IV (For NPO) 1,000 MG in EMPTY BAG 1 BAG IVPB STA (21:26)
[2018-04-09] MEDS ORDERED: NEOSTIGMINE 1 MG/ML 10 ML VIAL ONE (21:46)
[2018-04-09] MEDS ORDERED: PROPOFOL 10 MG/ML 20 ML VIAL IV ONE (21:46)
[2018-04-09] MEDS ORDERED: SODIUM CHLORIDE 0.9% 1,000 ML IV ONE (21:46)
[2018-04-09] MEDS ORDERED: SUCCINYLCHOLINE CHLORIDE 100 MG/5 ML SYR IV ONE (21:46)
[2018-04-09] MEDS ORDERED: MIDAZOLAM 2 MG/2 ML VIAL ONE (21:46)
[2018-04-09] MEDS ORDERED: ONDANSETRON 4 MG/2 ML VIAL ONE (21:46)
[2018-04-09] MEDS ORDERED: GLYCOPYRROLATE 0.2 MG/ML 2 ML VIAL ONE (21:46)
[2018-04-09] MEDS ORDERED: HEPARIN SODIUM,PORCINE 5,000 UNIT/ML 1 ML VIAL ONE (21:46)
[2018-04-09] MEDS ORDERED: LIDOCAINE 1% INJ 10MG/ML (20 ML MDV) ONE (21:46)
[2018-04-09] MEDS ORDERED: fentaNYL (PF) 50 MCG/ML 2 ML AMP ONE (21:46)
[2018-04-09] MEDS ORDERED: DEXAMETHASONE SOD PHOS (MDV) 100 MG/10 ML VIAL ONE (21:46)
[2018-04-09] MEDS ORDERED: ROCURONIUM BROMIDE 10 MG/ML 10 ML VIAL IV ONE (21:46)
[2018-04-09] MEDS ORDERED: HYDROmorphone (PF) 1 MG/ML ONE (21:46)
[2018-04-09] MEDS ORDERED: BUPIVACAIN-EPI 0.5%-1:200,000 30 ML VIAL SQ ONE ×2 (22:05)
--- NOTE | 2018-04-09 22:57 | P.OP ---
Date of Procedure: 04/09/18 Preoperative Diagnosis: Acute appendicitis Postoperative Diagnosis: Acute appendicitis Procedure(s) Performed: Laparoscopic appendectomy Anesthesia: JOSÉ Surgeon: Jalyn East Pathology: other (Appendix) Condition: stable Disposition: floor Indications for Procedure: 38-year-old female presented to the emergency department with 24 hours of abdominal pain that was specific to the right lower quadrant. On workup, the patient was found to have acute appendicitis. Secondary to this, the patient was planned to have a laparoscopic appendectomy. Risks, benefits and alternatives were provided to the patient. The patient did provide consent prior to attending the operating suite. Operative Findings: Injected, erythematous, superlative appendix Appendix was densely adhered to right abdominal wall and adnexa Description of Procedure: The patient was brought into the operating suite and placed in supine position on the operating table. Sedation was provided by anesthesia and the patient underwent endotracheal intubation. The patient was then prepped and draped in regular sterile fashion. A super umbilical incision was made dissection was carried to the fascia the fascia was incised and a 12 mm port was placed. Pneumoperitoneum was then achieved. 2 additional 5 mm ports were placed. One was placed in left lower quadrant. One was placed in the suprapubic region. The patient was then positioned appropriately. The appendix was clearly visualized and was noted to be injected and inflamed. It was also noted to be thickened and densely adhered to the right abdominal wall into the adnexa. Blunt dissection was used to free the appendix from the surrounding structures. A window was created between the appendix and the mesoappendix at the base of the appendix. A stapler device was fired across the base of the appendix. Hemostasis was maintained. A LigaSure device was then used to dissect the appendix free from the mesoappendix. Hemostasis was again maintained. The appendix was then removed from the abdomen in an Endo Catch bag. Copious muss irrigation was used in the right lower quadrant and pelvic region. Pneumoperitoneum was then released. The fascia at the supraumbilical incision site was closed with 0 Vicryl suture in interrupted fashion. All skin incisions were closed with 4-0 Vicryl subcuticular suture. The patient was then awakened in the operating suite and taken to postanesthesia care unit in stable condition.
[2018-04-09] MEDS: HYDROmorphone 1 MG/ML 1 ML SYRINGE IVP ONE ×2 (23:01→23:06)
[2018-04-09] MEDS ORDERED: MORPHINE SULFATE 2 MG/ML SYRINGE IVP PRN (23:02)
[2018-04-09 23:28] VITALS: RESP 16
[2018-04-10] MEDS: KETOROLAC 30 MG/ML 1 ML VIAL IVP SCH ×3 (00:04→11:01)
[2018-04-10] MEDS: HEPARIN SODIUM,PORCINE 5,000 UNIT/ML 1 ML VIAL SQ SCH ×2 (00:36→09:36)
[2018-04-10] MEDS: HYDROcodone/APAP 5-325MG 1 EACH TAB PO PRN ×2 (01:54→08:46)
[2018-04-10] MEDS: metroNIDAZOLE-NS PMX 500 MG in SALINE 1 100ML.BAG IVPB SCH ×2 (05:04→12:20)
[2018-04-10 07:07] LABS: Basophils % (A) 0 %; Eosinophils % (A) 0 %; HCT 36.6 % (34.0-46.0); HGB 12.2 gm/dL (11.4-16.0); Lymphocytes # (A) 0.4 k/uL (1.0-4.8); Lymphocytes % (A) 3 %; MCH 30.8 pg (25.0-35.0); MCHC 33.3 g/dL (31.0-37.0); MCV 92.6 fL (80.0-100.0); Mean Platelet Volume 8.4; Monocytes # (A) 0.1 k/uL (0-1.0); Monocytes % (A) 1 %; Neutrophils # (A) 11.9 k/uL (1.3-7.7); Neutrophils % (A) 96 %; Platelet Count 182 k/uL (150-450); RBC 3.95 m/uL (3.80-5.40); RDW 13.2 % (11.5-15.5); WBC 12.4 k/uL (3.8-10.6)
[2018-04-10 07:21] VITALS: BP 113/55; PULSE 74; TEMP 98.3
[2018-04-10 07:31] LABS: Anion Gap 7 mmol/L; Blood Urea Nitrogen 7 mg/dL (7-17); Calcium 7.6 mg/dL (8.4-10.2); Carbon Dioxide 20 mmol/L (22-30); Chloride 112 mmol/L (98-107); Glucose 111 mg/dL (74-99); Potassium 4.4 mmol/L (3.5-5.1); Sodium 139 mmol/L (137-145)
[2018-04-10] MEDS ORDERED: LEVOTHYROXINE 75 MCG TAB PO SCH (09:00)
[2018-04-10] MEDS: SODIUM CHLORIDE 0.9% 1,000 ML IV SCH (09:35)
--- NOTE | 2018-04-10 10:09 | P.DS ---
Providers Date of admission: 04/09/18 20:24 Attending physician: Jalyn East DO Primary care physician: Abhishek Tristan - Discharge Diagnosis(es) (1) Acute appendicitis Current Visit: Yes Status: Acute Hospital Course: 38-year-old female presented to the emergency department with complaints of abdominal pain. She was diagnosed with appendicitis. She was taken to OR for laparoscopic appendectomy. Postoperatively, the patient has been doing well. Her pain is improved and is tolerable and pain medication. She now has an appetite and has been advanced to a soft diet. She is ambulating. Her leukocytosis has improved from 20 down to 12. At this point, she is surgically stable for discharge. I did discuss with her to return to the emergency department if there is any significant increase in pain or febrile episodes. She is discharged on antibiotics and pain control Procedures: Laparoscopic appendectomy Patient Condition at Discharge: Stable Plan - Discharge Summary New Discharge Prescriptions: New Ciprofloxacin HCl [Cipro] 500 mg PO Q12HR #20 tablet metroNIDAZOLE [Flagyl] 500 mg PO TID #30 tab HYDROcodone/APAP 5-325MG [[place] 5-325] 1 tab PO Q6HR PRN 3 Days #12 tab PRN Reason: Pain Continue Levothyroxine Sodium [Synthroid] 150 mcg PO DAILY Sertraline [Zoloft] 100 mg PO DAILY Norethindrone-E.estradiol-Iron [Microgestin 24 Fe 1 mg-20 Mcg] 1 tab PO HS Discharge Medication List Levothyroxine Sodium [Synthroid] 150 mcg PO DAILY 09/07/16 [History] Sertraline [Zoloft] 100 mg PO DAILY 09/07/16 [History] Norethindrone-E.estradiol-Iron [Microgestin 24 Fe 1 mg-20 Mcg] 1 tab PO HS 04/09 [History] Ciprofloxacin HCl [Cipro] 500 mg PO Q12HR #20 tablet 04/10/18 [Rx] HYDROcodone/APAP 5-325MG [[place] 5-325] 1 tab PO Q6HR PRN 3 Days #12 tab [Rx] metroNIDAZOLE [Flagyl] 500 mg PO TID #30 tab 04/10/18 [Rx] Follow up Appointment(s)/Referral(s): Abhishek Tristan MD [Primary Care Provider] - 1-2 days Jalyn East DO [Doctor of Osteopathic Medicine] - 1 Week Patient Instructions/Handouts: Laparoscopic Appendectomy (DC) Activity/Diet/Wound Care/Special Instructions: No lifting greater than 20 pounds Okay to shower, do not scrub soap on incision sites Continue to increase activity Stay on soft foods While taking narcotic pain medication, to take stool softeners Return to ER if any increase in pain or febrile episodes Discharge Disposition: HOME SELF-CARE
[2018-04-10] MEDS ORDERED: LEVOFLOXACIN 500MG-D5W PMX 500 MG in DEXTROSE/WATER 1 100ML.BAG IVPB SCH (19:00)
== END 2018-04-10 14:49 | disposition home or self-care (01) | DRG 343 ==
LOC: EC 17:12 → 3SUR 20:24 → OBSVTOIN 20:24
PROVIDERS: ADMIT Surgery; ATTEND Surgery
PROC: 0DTJ4ZZ Resection of Appendix, Percutaneous Endoscopic Approach (ICD-10-PCS; principal; 2018-04-09 21:35)
DX: K35.80 Unspecified acute appendicitis (principal); E89.0 Postprocedural hypothyroidism; R19.7 Diarrhea, unspecified; F17.200 Nicotine dependence, unspecified, uncomplicated; Z71.6 Tobacco abuse counseling; Z79.890 Hormone replacement therapy; Z79.899 Other long term (current) drug therapy; Z85.850 Personal history of malignant neoplasm of thyroid; Z90.710 Acquired absence of both cervix and uterus; Z88.1 Allergy status to other antibiotic agents; Z88.0 Allergy status to penicillin
CPT/HCPCS: 36415; 74177; 80048; 80053; 81001; 81025; 82150; 83605; 83690; 85025; 85610; 85730; 86850; 86900; 86901; 87040; 88304; 96361; 96365; 96367; 96375; 99285

== ENCOUNTER → 2018-04-28 | Outpatient (CLI) | payer OTHER ==
--- NOTE | 2018-04-28 12:33 | US ---
EXAMINATION TYPE: US pelvic complete plus Doppler DATE OF EXAM: 04/28/2018 COMPARISON: 12/26/[address] 04/09/2018 CLINICAL HISTORY: 38-year-old female R19.0 pelvic mass. Patient states changed oral contraceptives an d does not have menstrual cycle with new medication; , C section x 2; appendectomy 4 weeks ago pe r patient; right pelvic pain; endometriosis TECHNIQUE: Transabdominal sonographic images of the pelvis were acquired. Transvaginal sonographic i mages were medically necessary to better assess the following anatomy: Endometrium and ovaries. Color Doppler and spectral waveform analysis of the ovarian arteries and veins. Date of LMP: 2.5 months ago FINDINGS: EXAM MEASUREMENTS: Uterus: 7.8 x 5.0 x 3.8cm Endometrial Stripe: 0.7 cm Right Ovary: 2.5 x 2.1 x 1.4 cm Left Ovary: 2.2 x 2.3 x 1.3 cm 1. Uterus: Retroverted 2. Endometrium: Trace fluid within the upper uterine cavity. The endometrial stripe is normal in thi ckness. 3. Right Ovary: There appears to be a thick walled paraovarian cyst measuring 1.3 x 1.2 cm. The ovar y itself demonstrates follicular change measuring up to 6 mm. 4. Left Ovary: multiple follicles with largest = 0.6 x 0.5 x 0.5cm, possible corpus luteum given per ipheral ring of color flow Spectral, color and waveform Doppler imaging shows good arterial and venous flow within the ovaries ; there is no evidence for ovarian torsion. 5. Bilateral Adnexa: wnl 6. Posterior cul-de-sac: wnl IMPRESSION: 1. The overall appearance of the ovaries especially the right ovary is less complex as compared to . There may be a thick walled paraovarian cyst from the right ovary measuring 1.3 cm. Addition al short interval follow-up is recommended. 2. No sonographic evidence for ovarian torsion. 3. Small amount of fluid along the fundal uterine cavity.
== END | disposition home or self-care (01) ==
LOC: RADUSWWP 08:55
PROVIDERS: ATTEND Obstetrics & Gynecology
DX: R19.00 Intra-abdominal and pelvic swelling, mass and lump, unspecified site (principal)
CPT/HCPCS: 76830; 76856

== ENCOUNTER → 2019-04-15 | Outpatient (CLI) | payer OTHER ==
[2019-04-15 13:10] LABS: Basophils # (A) 0.1 k/uL (0-0.2); Basophils % (A) 1 %; Eosinophils # (A) 0.1 k/uL (0-0.7); Eosinophils % (A) 1 %; HCT 44.5 % (34.0-46.0); HGB 14.7 gm/dL (11.4-16.0); Lymphocytes # (A) 2.6 k/uL (1.0-4.8); Lymphocytes % (A) 26 %; MCH 31.6 pg (25.0-35.0); MCHC 33.1 g/dL (31.0-37.0); MCV 95.4 fL (80.0-100.0); Mean Platelet Volume 7.9; Monocytes # (A) 0.4 k/uL (0-1.0); Monocytes % (A) 4 %; Neutrophils # (A) 6.8 k/uL (1.3-7.7); Neutrophils % (A) 67 %; Platelet Count 241 k/uL (150-450); RBC 4.67 m/uL (3.80-5.40); RDW 14.1 % (11.5-15.5); WBC 10.1 k/uL (3.8-10.6)
== END | disposition home or self-care (01) ==
LOC: LABPAT 12:06
PROVIDERS: ATTEND Obstetrics & Gynecology
DX: Z01.812 Encounter for preprocedural laboratory examination (principal)
CPT/HCPCS: 36415; 85025

== ENCOUNTER 2019-04-22 06:36 | Day surgery (SDC) | payer OTHER ==
[2019-04-19 10:59] VITALS: BMI 25.0
[~2019-04-22 06:36] MED LIST: DEXAMETHASONE SOD PHOSPHATE 10 MG/ML 1 ML VIAL IV ONE; LACTATED RINGERS 1,000 ML IV SCH; MIDAZOLAM 2 MG/2 ML VIAL IV PRN; ONDANSETRON 4 MG/2 ML VIAL IVP ONE; Pre Op ABX Message 1 EACH MISC MISCELLANE ONE; SCOPOLAMINE 1.5MG/72HR PATCH TRANSDERM ONE
--- NOTE | 2019-04-22 06:41 | P.HPOB ---
History of Present Illness H&P Date: 04/22/19 Chief Complaint: Family planning 39 year old presents for laparoscopic tubal ligation. Review of Systems All systems: negative Constitutional: Denies chills, Denies fever Eyes: denies blurred vision, denies pain Ears, nose, mouth and throat: Denies headache, Denies sore throat Cardiovascular: Denies chest pain, Denies shortness of breath Respiratory: Denies cough Gastrointestinal: Denies abdominal pain, Denies diarrhea, Denies nausea, Denies vomiting Genitourinary: Denies dysuria, Denies hematuria Musculoskeletal: Denies myalgias Integumentary: Denies pruritus, Denies rash Neurological: Denies numbness, Denies weakness Psychiatric: Denies anxiety, Denies depression Endocrine: Denies fatigue, Denies weight change Past Medical History Past Medical History: Cancer, GERD/Reflux, Thyroid Disorder Additional Past Medical History / Comment(s): thyroid cancer, migraines, endometriosis History of Any Multi-Drug Resistant Organisms: None Reported Past Surgical History: Appendectomy, Section Additional Past Surgical History / Comment(s): thyroidectomy, exploratory laparoscopy Past Anesthesia/Blood Transfusion Reactions: No Reported Reaction Smoking Status: Current every day smoker - Past Family History Mother Family Medical History: No Reported History Father Family Medical History: AFIB Brother(s) Family Medical History: Cancer Additional Family Medical History / Comment(s): brain cancer Medications and Allergies Home Medications Medication Instructions Recorded Confirmed Type Levothyroxine Sodium [Synthroid] 150 mcg PO DAILY 09/07/16 04/19/19 History Sertraline [Zoloft] 100 mg PO DAILY 09/07/16 04/19/19 History Cholecalciferol (Vitamin D3) 5,000 unit PO DAILY 04/19/19 04/19/19 History [Vitamin D3] [place] 1 tab PO HS 04/19/19 04/19/19 History Allergies Allergy/AdvReac Type Severity Reaction Status Date / Time bacitracin Allergy Rash/Hives Verified 04/19/19 10:50 [From Neosporin ([id number])] erythromycin base Allergy Rash/Hives Verified 04/19/19 10:50 neomycin Allergy Rash/Hives Verified 04/19/19 10:50 [From Neosporin ([id number])] Penicillins Allergy Rash/Hives Verified 04/19/19 10:50 polymyxin B Allergy Rash/Hives Verified 04/19/19 10:50 [From Neosporin ([id number])] Exam Osteopathic Statement: *. No significant issues noted on an osteopathic structural exam other than those noted in the History and Physical/Consult. Heart: Regular rate and rhythm Lungs: Clear to auscultation bilaterally Abdomen: Soft, nontender Extremities: Negative Homans sign Assessment and Plan (1) Family planning Current Visit: Yes Status: Acute Code(s): Z30.09 - ENCOUNTER FOR OTH GENERAL CNSL AND ADVICE ON CONTRACEPTION SNOMED Code(s): 354923442 Plan: 1. Laparoscopic tubal ligation
[2019-04-22] MEDS ORDERED: PROPOFOL 10 MG/ML 20 ML VIAL IV ONE (07:17)
[2019-04-22] MEDS ORDERED: MIDAZOLAM 2 MG/2 ML VIAL ONE (07:17)
[2019-04-22] MEDS ORDERED: HYDROmorphone (PF) 1 MG/ML ONE (07:17)
[2019-04-22] MEDS ORDERED: fentaNYL (PF) 50 MCG/ML 2 ML AMP ONE (07:17)
[2019-04-22] MEDS ORDERED: LIDOCAINE 1% INJ 10MG/ML (20 ML MDV) ONE (07:17)
[2019-04-22] MEDS ORDERED: ROCURONIUM BROMIDE 10 MG/ML 10 ML VIAL IV ONE (07:17)
[2019-04-22] MEDS ORDERED: NEOSTIGMINE 1 MG/ML 10 ML VIAL ONE (07:17)
[2019-04-22] MEDS ORDERED: SUCCINYLCHOLINE CHLORIDE 100 MG/5 ML SYR IV ONE (07:17)
[2019-04-22] MEDS ORDERED: KETOROLAC 30 MG/ML 1 ML VIAL ONE (07:17)
[2019-04-22] MEDS ORDERED: GLYCOPYRROLATE 0.2 MG/ML 2 ML VIAL ONE (07:17)
[2019-04-22] MEDS ORDERED: BUPIVACAINE (PF) 0.25% 30 ML VIAL SQ ONE ×2 (07:39→08:09)
[2019-04-22 08:36] VITALS: TEMP 98.7
--- NOTE | 2019-04-22 08:38 | P.OP ---
Date of Procedure: 04/22/19 Preoperative Diagnosis: 1. Family planning Postoperative Diagnosis: 1. Family planning Procedure(s) Performed: Laparoscopic tubal ligation Anesthesia: JOSÉ Surgeon: Freda Badillo Estimated Blood Loss (ml): 10 IV fluids (ml): 600 Urine output (ml): 30 Pathology: none sent Condition: stable Disposition: floor Operative Findings: The bladder flap was high on the anterior uterine wall, normal tubes and ovaries though the fallopian tubes were scarred to the ovary and the ovarian fossa. Endometriosis noted on the colon and anterior abdominal wall. Description of Procedure: Patient was taken to the operating room where general anesthesia was obtained without difficulty. She was prepped and draped in normal sterile fashion in the dorsal lithotomy position, legs placed in the Matt stirrups. Bladder drained of all urine. [place] speculum placed in the vagina and the anterior lip the cervix was grasped with single-tooth tenaculum. The uterus is sounded to 5 cm and the kroner manipulator was placed. Attention was then turned to the abdomen and gloves were changed. A 10 mm infraumbilical incision was made the scalpel and 10 mm optical trocar was placed under direct visualization. A 5 mm suprapubic Incision was made and a 5 mm optical trocar was placed under direct visualization. Survey of the pelvis revealed normal uterus tubes and ovaries. The bladder was high on the anterior uterine wall. The bowel kept getting in the way of the fallopian tubes and the posterior cul-de-sac. I made a third incision on the patient's left side and put a 5 mm optical trocar in under direct visualization. Retractor was used to push the bowels out of the way. The left fallopian tube was grasped with a Kleppinger and fulgurated 2-3 cm on this side in the ampullar portion. The right fallopian tube was grasped with a Kleppinger and fulgurated 2-3 cm in the ampullar portion. All instruments were then removed from the abdomen and vagina. The 10 mm infraumbilical incision was closed with 0 Vicryl and the fascial layer and then 4-0 Vicryl in a subcuticular fashion. The 5 mm incision was closed with 4-0 Vicryl in a subcuticular fashion. Patient tolerated procedure well, sponge and instrument counts correct 2 and she was taken to recovery room in stable condition.
[2019-04-22] MEDS: HYDROmorphone 0.5 MG/0.5 ML SYRINGE IVP PRN ×2 (08:51→09:04)
[2019-04-22 09:22] VITALS: RESP 18
[2019-04-22] MEDS ORDERED: HYDROcodone/APAP 5-325MG 1 EACH TAB PO ONE (09:58)
[2019-04-22 10:28] VITALS: BP 118/72; PULSE 73
== END 2019-04-22 10:54 | disposition home or self-care (01) ==
LOC: OR 06:36
PROVIDERS: ATTEND Obstetrics & Gynecology
DX: Z30.2 Encounter for sterilization (principal); K21.9 Gastro-esophageal reflux disease without esophagitis; E89.0 Postprocedural hypothyroidism; G43.909 Migraine, unspecified, not intractable, without status migrainosus; F32.9 Major depressive disorder, single episode, unspecified; F41.9 Anxiety disorder, unspecified; N80.9 Endometriosis, unspecified; F17.210 Nicotine dependence, cigarettes, uncomplicated; Z85.850 Personal history of malignant neoplasm of thyroid; Z79.890 Hormone replacement therapy; Z79.899 Other long term (current) drug therapy; Z88.1 Allergy status to other antibiotic agents; Z88.0 Allergy status to penicillin; Z90.49 Acquired absence of other specified parts of digestive tract; Z80.8 Family history of malignant neoplasm of other organs or systems; Z82.49 Family history of ischemic heart disease and other diseases of the circulatory system
CPT/HCPCS: 58670; 81025; J2250; J1100; J2710; J2405; J2001; J3010; J1885; J1170 ×2; J0330; J2704

== ENCOUNTER → 2019-05-31 | Outpatient (CLI) | payer OTHER ==
--- NOTE | 2019-05-31 11:30 | MM ---
Reason for exam: screening (asymptomatic). Baseline mammogram. History: Patient history of other cancer. Physical Findings: Nurse did not find any significant physical abnormalities on exam. MG Screening Mammo w CAD Bilateral CC, MLO, and XCCL view(s) were taken. The breast tissue is heterogeneously dense. This may lower the sensitivity of mammography. No suspicious abnormality. These results were verbally communicated with the patient and result sheet given to the patient on 05/31/19. ASSESSMENT: Negative, BI-RAD 1 RECOMMENDATION: Routine screening mammogram of both breasts in 1 year.
== END | disposition home or self-care (01) ==
LOC: RADMAMWWP 10:24
PROVIDERS: ATTEND Obstetrics & Gynecology
DX: Z12.31 Encounter for screening mammogram for malignant neoplasm of breast (principal)
CPT/HCPCS: 77067

== ENCOUNTER 2024-02-29 17:15 | Emergency (ER) | payer OTHER ==
[2024-02-29 17:19] VITALS: BP 136/72; PULSE 86; RESP 18; TEMP 97.6
[2024-02-29 17:46] LABS: Basophils # (A) 0.1 k/uL (0-0.2); Basophils % (A) 1 %; Eosinophils # (A) 0.1 k/uL (0-0.7); Eosinophils % (A) 1 %; HGB 13.9 gm/dL (11.4-16.0); Lymphocytes # (A) 2.1 k/uL (1.0-4.8); Lymphocytes % (A) 22 %; MCH 33.2 pg (25.0-35.0); MCHC 33.9 g/dL (31.0-37.0); Mean Platelet Volume 8.7; Monocytes # (A) 0.4 k/uL (0-1.0); Monocytes % (A) 4 %; Neutrophils # (A) 6.8 k/uL (1.3-7.7); Neutrophils % (A) 70 %; Platelet Count 228 k/uL (150-450); RBC 4.18 m/uL (3.80-5.40); RDW 12.6 % (11.5-15.5); WBC 9.6 k/uL (3.8-10.6)
[2024-02-29 17:48] LABS: Appearance,Urine Clear (Clear); Bacteria,Urine Rare /hpf; Bilirubin,Urine Negative (Negative); Blood,Urine Trace (Negative); Color,Urine Colorless; Glucose,Urine (UA) Negative (Negative); Ketones,Urine Negative (Negative); Leukocyte Esterase,Urine Negative (Negative); Nitrite,Urine Negative (Negative); Protein,Urine Negative (Negative); RBC,Urine <1 /hpf (0-5); Specific Gravity,Urine 1.004 (1.001-1.035); Squamous Epithelial Cell,Urine <1 /hpf (0-4); Urobilinogen,Urine <2.0 mg/dL (<2.0); WBC,Urine 1 /hpf (0-5)
[2024-02-29 17:55] LABS: ALT 13 U/L (4-34); AST 20 U/L (14-36); African American GFR (CKD) >90 (>60 ml/min/1.73 sqM); Albumin 4.4 g/dL (3.5-5.0); Alkaline Phosphatase 72 U/L (38-126); Anion Gap 4 mmol/L; Blood Urea Nitrogen 9 mg/dL (7-17); Carbon Dioxide 26 mmol/L (22-30); Chloride 110 mmol/L (98-107); Glucose 96 mg/dL (74-99); Non-African American GFR(CKD) >90 (>60 ml/min/1.73 sqM); Potassium 3.9 mmol/L (3.5-5.1); Sodium 140 mmol/L (137-145); Total Bilirubin 0.3 mg/dL (0.2-1.3); Total Protein 6.8 g/dL (6.3-8.2)
--- NOTE | 2024-02-29 18:25 | ED ---
Female Urogenital HPI - General Chief complaint: Urogenital Stated complaint: bladder issues Time Seen by Provider: 02/29/24 17:20 Source: patient Mode of arrival: ambulatory Limitations: no limitations - History of Present Illness Initial comments: 44-year-old female presenting with chief complaint of abdominal pain. Patient states that she is having a lot of pressure in the lower abdomen. She states "it feels like my bladder is going to fall out". No nausea, vomiting, diarrhea, or fevers. Patient does have history of kidney stones, however states this does not feel like her previous kidney stones. She also feels like she is unable to completely empty her bladder. No dysuria or hematuria. No injury or trauma. Surgical history includes - Related Data Home Medications Medication Instructions Recorded Confirmed Levothyroxine Sodium [Synthroid] 150 mcg PO DAILY 09/07/16 04/22/19 Sertraline [Zoloft] 100 mg PO DAILY 09/07/16 04/22/19 Cholecalciferol (Vitamin D3) 5,000 unit PO DAILY 04/19/19 04/22/19 [Vitamin D3] [place] 1 tab PO HS 04/19/19 04/22/19 Previous Rx's Medication Instructions Recorded HYDROcodone/APAP 5-325MG [[place] 1 - 2 tab PO Q6HR PRN #20 tab 04/22/19 5-325] Ibuprofen [Motrin] 600 mg PO Q6HR PRN #30 tab 04/22/19 Allergies Allergy/AdvReac Type Severity Reaction Status Date / Time bacitracin Allergy Rash/Hives Verified 02/29/24 17:20 [From Neosporin ([id number])] erythromycin base Allergy Rash/Hives Verified 02/29/24 17:20 neomycin Allergy Rash/Hives Verified 02/29/24 17:20 [From Neosporin ([id number])] Penicillins Allergy Rash/Hives Verified 02/29/24 17:20 polymyxin B Allergy Rash/Hives Verified 02/29/24 17:20 [From Neosporin ([id number])] Review of Systems ROS Statement: Those systems with pertinent positive or pertinent negative responses have been documented in the HPI. ROS Other: All systems not noted in ROS Statement are negative. Past Medical History Past Medical History: Cancer, Thyroid Disorder Additional Past Medical History / Comment(s): thyroid cancer History of Any Multi-Drug Resistant Organisms: None Reported Past Surgical History: Section Additional Past Surgical History / Comment(s): thyroidectomy Past Anesthesia/Blood Transfusion Reactions: No Reported Reaction Past Psychological History: No Psychological Hx Reported Smoking Status: Never smoker Past Alcohol Use History: Occasional Past Drug Use History: None Reported - Past Family History Mother Family Medical History: No Reported History Father Family Medical History: AFIB Brother(s) Family Medical History: Cancer General Exam Limitations: no limitations General appearance: alert, in no apparent distress Head exam: Present: atraumatic, normocephalic Eye exam: Present: normal appearance, EOMI Neck exam: Present: normal inspection. Absent: meningismus Respiratory exam: Absent: respiratory distress Cardiovascular Exam: Present: regular rate GI/Abdominal exam: Present: soft. Absent: distended, tenderness, guarding, rebound, rigid External exam: Present: other (bulging from the anterior portion of the vagina with bearing down, reduces when the patient relaxes, concerning for possible cystocele) Speculum exam: Present: normal speculum exam Neurological exam: Present: alert, oriented X3 Psychiatric exam: Present: normal affect, normal mood Skin exam: Present: normal color Course Vital Signs 02/29/24 17:16 Temperature 97.6 F Pulse Rate 86 Respiratory 18 Rate Blood Pressure 136/72 O2 Sat by Pulse 99 Oximetry Medical Decision Making - Medical Decision Making Was pt. sent in by a medical professional or institution (Dr. PA, TYPE INSPECTOR, urgent care, hospital, or long-term...) When possible be specific @ -No Did you speak to anyone other than the patient for history (EMS, parent, family, police, friend...)? What history was obtained from this source @ -No Did you review nursing and triage notes (agree or disagree)? Why? @ -I reviewed and agree with nursing and triage notes Were old charts reviewed (outside hosp., previous admission, EMS record, old EKG, old radiological studies, urgent care reports/EKG's, long-term records)? Report findings @ -No old charts were reviewed Differential Diagnosis (chest pain, altered mental status, abdominal pain women, abdominal pain men, vaginal bleeding, weakness, fever, dyspnea, syncope, headache, dizziness, GI bleed, back pain, seizure, CVA, palpatations, mental health, musculoskeletal)? @ -MDM Differential Abdominal Pain Women: Appendicitis, Cholecystitis, diverticulosis, ischemic bowel, pancreatitis, hepatitis, UTI, gastroenteritis, AAA, incarcerated hernia, bowel obstruction, constipation, inflammatory bowel, hepatitis, peptic ulcer disease, splenic infarction, perforated viscus, vulvitis, ovarian torsion, PID, kidney stone, placenta abruption... This is not meant to be an all-inclusive list EKG interpreted by me (3pts min.). @ -As above X-rays interpreted by me (1pt min.). @ -None done CT interpreted by me (1pt min.). @ -None done U/S interpreted by me (1pt. min.). @ -Ultrasound shows no evidence for obstructive uropathy. Right nonobstructing 3 mm calculus What testing was considered but not performed or refused? (CT, X-rays, U/S, labs)? Why? @ -None What meds were considered but not given or refused? Why? @ -None Did you discuss the management of the patient with other professionals (professionals i.e. , PA, TYPE INSPECTOR, lab, RT, psych nurse, sr. social media & mobile manager, winding department supervisor, teacher, financial services officer, mattress spring encaser)? Give summary @ -No Was smoking cessation discussed for >3mins.? @ -No Was critical care preformed (if so, how long)? @ -No Were there social determinants of health that impacted care today? How? (Homelessness, low income, unemployed, alcoholism, drug addiction, transportation, low edu. Level, literacy, decrease access to med. care, shelter, rehab)? @ -No Was there de-escalation of care discussed even if they declined (Discuss DNR or withdrawal of care, Hospice)? DNR status @ -No What co-morbidities impacted this encounter? (DM, HTN, Smoking, COPD, CAD, Cancer, CVA, ARF, Chemo, Hep., AIDS, mental health diagnosis, sleep apnea, morbid obesity)? @ -None Was patient admitted / discharged? Hospital course, mention meds given and route, prescriptions, significant lab abnormalities, going to OR and other pertinent info. @ -44-year-old female presenting with chief complaint of pelvic pressure. Pat ient states that she is experiencing urinary frequency and feels like she is not completely emptying her bladder. She is also getting pressure in her vagina and stating "it feels like my bladder is going to fall out". Lab work is essentially unremarkable. Urine shows no infectious process or bleeding. Negative hCG. Ultrasound shows no obstructive uropathy. Pelvic exam is performed and when having the patient bear down there is bulging from the anterior portion, concerning for possible cystocele. Remainder of pelvic exam is WNL. I educated the patient on today's findings. Educated on cystocele and the need for follow-up with her BLENDER HELPER. States that she is try to get in with their office, her BLENDER HELPER recently moved offices. She will be discharged home. Follow-up with PCP. Report back to ER with any new or worsening symptoms. Discussed return parameters and answered all questions. Patient conveyed verbal understanding and agreed to the plan. I discussed this case in detail with my attending Dr. Rendon Undiagnosed new problem with uncertain prognosis? @ -No Drug Therapy requiring intensive monitoring for toxicity (Heparin, Nitro, Insulin, Cardizem)? @ -No Were any procedures done? @ -No Diagnosis/symptom? @ -Pelvic pressure, cystocele Acute, or Chronic, or Acute on Chronic? @ -Acute Uncomplicated (without systemic symptoms) or Complicated (systemic symptoms)? @ -Uncomplicated Side effects of treatment? @ -No Exacerbation, Progression, or Severe Exacerbation? @ -No Poses a threat to life or bodily function? How? (Chest pain, [place], [place], pneumonia, PE, COPD, DKA, ARF, appy, cholecystitis, CVA, Diverticulitis, Homicidal, Suicidal, threat to staff... and all critical care pts) @ -Low likelihood - Lab Data Result diagrams: 02/29/24 17:33 02/29/24 17:33 Lab Results 02/29/24 02/29/24 02/29/24 Range/Units 17:33 17:33 17:33 WBC 9.6 (3.8-10.6) k/uL RBC 4.18 (3.80-5.40) m/uL Hgb 13.9 (11.4-16.0) gm/dL Hct 41.0 (34.0-46.0) % MCV 98.0 (80.0-100.0) fL MCH 33.2 (25.0-35.0) pg MCHC 33.9 (31.0-37.0) g/dL RDW 12.6 (11.5-15.5) % Plt Count 228 (150-450) k/uL MPV 8.7 Neutrophils % 70 % Lymphocytes % 22 % Monocytes % 4 % Eosinophils % 1 % Basophils % 1 % Neutrophils # 6.8 (1.3-7.7) k/uL Lymphocytes # 2.1 (1.0-4.8) k/uL Monocytes # 0.4 (0-1.0) k/uL Eosinophils # 0.1 (0-0.7) k/uL Basophils # 0.1 (0-0.2) k/uL Sodium (137-145) mmol/L Potassium (3.5-5.1) mmol/L Chloride (98-107) mmol/L Carbon Dioxide (22-30) mmol/L Anion Gap mmol/L BUN (7-17) mg/dL Creatinine (0.52-1.04) mg/dL Est GFR (CKD-EPI)AfAm (>60 ml/min/1.73 sqM) Est GFR (CKD-EPI)NonAf (>60 ml/min/1.73 sqM) Glucose (74-99) mg/dL Plasma Lactic Acid Eren (0.7-2.0) mmol/L Calcium (8.4-10.2) mg/dL Total Bilirubin (0.2-1.3) mg/dL AST (14-36) U/L ALT (4-34) U/L Alkaline Phosphatase (38-126) U/L Total Protein (6.3-8.2) g/dL Albumin (3.5-5.0) g/dL Urine Color Colorless Urine Appearance Clear (Clear) Urine pH 6.0 (5.0-8.0) Ur Specific [place] 1.004 (1.001-1.035) Urine Protein Negative (Negative) Urine Glucose (UA) Negative (Negative) Urine Ketones Negative (Negative) Urine Blood Trace H (Negative) Urine Nitrite Negative (Negative) Urine Bilirubin Negative (Negative) Urine Urobilinogen <2.0 (<2.0) mg/dL Ur Leukocyte Esterase Negative (Negative) Urine RBC <1 (0-5) /hpf Urine WBC 1 (0-5) /hpf Ur Squamous Epith Cells <1 (0-4) /hpf Urine Bacteria Rare H (None) /hpf Urine HCG, Qual Not Detected (Not Detectd) 02/29/24 02/29/24 Range/Units 17:33 17:33 WBC (3.8-10.6) k/uL RBC (3.80-5.40) m/uL Hgb (11.4-16.0) gm/dL Hct (34.0-46.0) % MCV (80.0-100.0) fL MCH (25.0-35.0) pg MCHC (31.0-37.0) g/dL RDW (11.5-15.5) % Plt Count (150-450) k/uL MPV Neutrophils % % Lymphocytes % % Monocytes % % Eosinophils % % Basophils % % Neutrophils # (1.3-7.7) k/uL Lymphocytes # (1.0-4.8) k/uL Monocytes # (0-1.0) k/uL Eosinophils # (0-0.7) k/uL Basophils # (0-0.2) k/uL Sodium 140 (137-145) mmol/L Potassium 3.9 (3.5-5.1) mmol/L Chloride 110 H (98-107) mmol/L Carbon Dioxide 26 (22-30) mmol/L Anion Gap 4 mmol/L BUN 9 (7-17) mg/dL Creatinine 0.61 (0.52-1.04) mg/dL Est GFR (CKD-EPI)AfAm >90 (>60 ml/min/1.73 sqM) Est GFR (CKD-EPI)NonAf >90 (>60 ml/min/1.73 sqM) Glucose 96 (74-99) mg/dL Plasma Lactic Acid Eren 0.9 (0.7-2.0) mmol/L Calcium 9.0 (8.4-10.2) mg/dL Total Bilirubin 0.3 (0.2-1.3) mg/dL AST 20 (14-36) U/L ALT 13 (4-34) U/L Alkaline Phosphatase 72 (38-126) U/L Total Protein 6.8 (6.3-8.2) g/dL Albumin 4.4 (3.5-5.0) g/dL Urine Color Urine Appearance (Clear) Urine pH (5.0-8.0) Ur Specific [place] (1.001-1.035) Urine Protein (Negative) Urine Glucose (UA) (Negative) Urine Ketones (Negative) Urine Blood (Negative) Urine Nitrite (Negative) Urine Bilirubin (Negative) Urine Urobilinogen (<2.0) mg/dL Ur Leukocyte Esterase (Negative) Urine RBC (0-5) /hpf Urine WBC (0-5) /hpf Ur Squamous Epith Cells (0-4) /hpf Urine Bacteria (None) /hpf Urine HCG, Qual (Not Detectd) Disposition Clinical Impression: Cystocele, Pelvic pressure in female Disposition: HOME SELF-CARE Condition: Good Instructions (If sedation given, give patient instructions): Cystocele (ED), Pelvic Pain in Women (ED) Additional Instructions: Follow-up with BLENDER HELPER. Report back to ER with any new or worsening symptoms. Is patient prescribed a controlled substance at d/c from ED?: No Referrals: None,Stated [Primary Care Provider] - 1-2 days Freda Badillo DO [Doctor of Osteopathic Medicine] - 1-2 days Time of Disposition: 19:47
[2024-02-29] MEDS: KETOROLAC 15 MG/ML 1 ML VIAL IVP STA (19:18)
--- NOTE | 2024-02-29 19:23 | US ---
EXAMINATION TYPE: US kidneys/renal and bladder DATE OF EXAM: 02/29/2024 COMPARISON: NONE CLINICAL INDICATION: Female, 44 years old with history of bladder pressure; Bladder pressure EXAM MEASUREMENTS: Right Kidney: 10.1x4.2x6.2 cm Left Kidney: 10.8x5.3x5.4 cm Right Kidney: 0.3cm stone and 0.9x0.6x0.9cm cyst at the inferior pole Left Kidney: No hydronephrosis or masses seen Bladder: wnl Bilateral Jets seen: Yes There is no evidence for hydronephrosis at this point in time. No nephrolithiasis is seen. No mehnaz s are identified. The urinary bladder is anechoic. Bilateral ureteral jets are seen. IMPRESSION: 1. No evidence for obstructive uropathy. 2. Right nonobstructing 3 mm calculus.
== END 2024-02-29 19:58 | disposition home or self-care (01) ==
LOC: EC 17:15
DX: N81.10 Cystocele, unspecified (principal); Z88.0 Allergy status to penicillin; Z88.8 Allergy status to other drugs, medicaments and biological substances
CPT/HCPCS: 36415; 80053; 83605; 85025; 81001; 81025; 76770; 99284; 96374; J1885

== ENCOUNTER → 2024-05-11 | Outpatient (CLI) | payer OTHER ==
[2024-05-11 15:15] LABS: Basophils # (A) 0.11 X 10*3/uL (0.00-0.10); Basophils % (A) 1.1 %; Eosinophils # (A) 0.09 X 10*3/uL (0.04-0.35); Eosinophils % (A) 0.9 %; HCT 41.4 % (37.2-46.3); HGB 14.4 g/dL (12.0-15.0); Lymphocytes # (A) 1.81 X 10*3/uL (0.90-5.00); Lymphocytes % (A) 17.8 %; MCH 33.3 pg (27.0-32.0); MCHC 34.8 g/dL (32.0-37.0); MCV 95.6 FL (80.0-97.0); Mean Platelet Volume 11.3 FL (9.5-12.2); Monocytes # (A) 0.51 X 10*3/uL (0.20-1.00); NRBC Per 100 WBC 0 X 10*3/uL (0.00-0.01); Neutrophils # (A) 7.58 X 10*3/uL (1.80-7.70); Neutrophils % (A) 74.7 %; Platelet Count 225 X 10*3/uL (140-440); RBC 4.33 X 10*6/uL (4.10-5.20); RDW 12.8 % (11.5-14.5); WBC 10.15 X 10*3/uL (4.50-10.00)
== END | disposition home or self-care (01) ==
LOC: LABPAT 12:06
PROVIDERS: ATTEND Obstetrics & Gynecology
DX: Z01.818 Encounter for other preprocedural examination
CPT/HCPCS: 36415; 85025

== ENCOUNTER 2024-05-17 08:33 | Day surgery (SDC) | payer OTHER ==
[2024-05-11 15:13] VITALS: BMI 21.2
[~2024-05-17 08:33] MED LIST changes: -DEXAMETHASONE SOD PHOSPHATE 10 MG/ML 1 ML VIAL IV ONE; -LACTATED RINGERS 1,000 ML IV SCH; -MIDAZOLAM 2 MG/2 ML VIAL IV PRN; -ONDANSETRON 4 MG/2 ML VIAL IVP ONE; -SCOPOLAMINE 1.5MG/72HR PATCH TRANSDERM ONE
--- NOTE | 2024-05-17 08:47 | P.HPOB ---
History of Present Illness H&P Date: 05/17/24 Chief Complaint: menrrhagia 44 year old presents for D&C hysteroscopy and encometorial ablation with Jeremie. Review of Systems All systems: negative Constitutional: Denies chills, Denies fever Eyes: denies blurred vision, denies pain Ears, nose, mouth and throat: Denies headache, Denies sore throat Cardiovascular: Denies chest pain, Denies shortness of breath Respiratory: Denies cough Gastrointestinal: Denies abdominal pain, Denies diarrhea, Denies nausea, Denies vomiting Genitourinary: Denies dysuria, Denies hematuria Musculoskeletal: Denies myalgias Integumentary: Denies pruritus, Denies rash Neurological: Denies numbness, Denies weakness Psychiatric: Denies anxiety, Denies depression Endocrine: Denies fatigue, Denies weight change Past Medical History Past Medical History: Cancer, Thyroid Disorder Additional Past Medical History / Comment(s): thyroid cancer, HEAVY FREQ. PEROIDS History of Any Multi-Drug Resistant Organisms: None Reported Past Surgical History: Appendectomy, Section Additional Past Surgical History / Comment(s): thyroidectomy Past Anesthesia/Blood Transfusion Reactions: No Reported Reaction Smoking Status: Current every day smoker - Past Family History Mother Family Medical History: No Reported History Father Family Medical History: AFIB Brother(s) Family Medical History: Cancer Medications and Allergies Home Medications Medication Instructions Recorded Confirmed Type Ibuprofen [Motrin] 600 mg PO Q6HR PRN #30 tab 04/22/19 05/11/24 Rx Levothyroxine Sodium 137 mcg PO DAILY 05/11/24 05/11/24 History Allergies Allergy/AdvReac Type Severity Reaction Status Date / Time bacitracin Allergy Rash/Hives Verified 05/11/24 15:02 [From Neosporin ([id number])] erythromycin base Allergy Rash/Hives Verified 05/11/24 15:02 neomycin Allergy Rash/Hives Verified 05/11/24 15:02 [From Neosporin ([id number])] Penicillins Allergy Rash/Hives Verified 05/11/24 15:02 polymyxin B Allergy Rash/Hives Verified 05/11/24 15:02 [From Neosporin ([id number])] Exam Osteopathic Statement: *. No significant issues noted on an osteopathic structural exam other than those noted in the History and Physical/Consult. Heart: Regular rate and rhythm Lungs: Clear to auscultation bilaterally Abdomen: Soft, nontender Extremities: Negative Homans sign Assessment and Plan (1) Menorrhagia Current Visit: Yes Status: Acute Code(s): N92.0 - EXCESSIVE AND FREQUENT MENSTRUATION WITH REGULAR CYCLE SNOMED Code(s): 341438465 Plan: 1. D&C hysteroscopy and endometrial ablation with NovaSure
[2024-05-17] MEDS: LACTATED RINGERS 1,000 ML IV SCH (09:04)
[2024-05-17] MEDS: DEXAMETHASONE SOD PHOSPHATE 4 MG/ML 1 ML VIAL IV ONE (09:04)
[2024-05-17] MEDS: ONDANSETRON 4 MG/2 ML VIAL IVP ONE (09:04)
[2024-05-17] MEDS: IV FLUID CONTINUATION 1,000 ML IV ONE (09:05)
[2024-05-17] MEDS: MIDAZOLAM 2 MG/2 ML VIAL IV ONE (09:08)
[2024-05-17] MEDS ORDERED: LIDOCAINE 1% INJ 10MG/ML (20 ML MDV) ONE (10:12)
[2024-05-17] MEDS ORDERED: KETOROLAC 15 MG/ML 1 ML VIAL ONE (10:12)
[2024-05-17] MEDS ORDERED: fentaNYL (PF) 50 MCG/ML 2 ML AMP ONE (10:12)
[2024-05-17] MEDS ORDERED: MIDAZOLAM 2 MG/2 ML VIAL ONE (10:12)
[2024-05-17] MEDS ORDERED: PROPOFOL 10 MG/ML 20 ML VIAL IV ONE (10:12)
[2024-05-17 11:06] VITALS: RESP 16; TEMP 97.8
--- NOTE | 2024-05-17 11:06 | P.OP ---
Date of Procedure: 05/17/24 Preoperative Diagnosis: menorrhagia Postoperative Diagnosis: menorrhagia Procedure(s) Performed: D&C hysteroscopy, failed ablation Anesthesia: MAC (LMA) Surgeon: Freda Badillo Estimated Blood Loss (ml): 3 IV fluids (ml): 200 Urine output (ml): 220 Pathology: other (endometrial currettings) Condition: stable Disposition: PACU Operative Findings: smooth, small, soft uterus and cervix. easily wripped by single toothed tenaculum and easily perforated fundus. ? adenomyosis? Description of Procedure: Patient is taken the operating room where general anesthesia was obtained without difficulty. She was prepped and draped in normal sterile fashion dorsal lithotomy position, legs placed in the Clean Runner cane stirrups. Bladder was drained of all urine. Weighted speculum placed in the vagina and the anterior lip the cervix was grasped with serial tooth tenaculum. The uterus sounded to 5 cm at first but then once the cervix was dilated, sounded to 8 and the cervix under 2 cm making the cavity length 6 cm. The single toothed tenaculum came off the cervix with little pressure twice. The cervix was dilated to #8 [place] dilator. Hysteroscopy was then performed. Both ostia were visualized and there was a smooth contour of the uterus. Sharp curet was then gently used to obtain endometrial curettings. The NovaSure was introduced into the uterus with a cavity length of 6 cm, width 4.5 cm. Cavity assessment was not passed twice. I then removed the device and looked with the camera. I did not see a perforation but did see a thinning at the fundus of the uterus where there could be a partial perforation. The Novasure was introduced once more and did not pass cavity assessment. This part of the procedure was abandoned. All instruments removed from the vagina. Patient tolerated the procedure well, sponge and instrument counts were correct 2 and she was taken to recovery in stable condition
[2024-05-17] MEDS: HYDROmorphone 0.5 MG/0.5 ML SYRINGE IVP PRN (11:30)
[2024-05-17 12:41] VITALS: BP 107/59; PULSE 60
== END 2024-05-17 12:52 | disposition home or self-care (01) ==
LOC: OR 08:33
PROVIDERS: ATTEND Obstetrics & Gynecology
DX: N92.0 Excessive and frequent menstruation with regular cycle (principal); E07.9 Disorder of thyroid, unspecified; F17.210 Nicotine dependence, cigarettes, uncomplicated; Z79.890 Hormone replacement therapy; Z85.850 Personal history of malignant neoplasm of thyroid; Z88.0 Allergy status to penicillin; Z88.1 Allergy status to other antibiotic agents; Z90.49 Acquired absence of other specified parts of digestive tract; Z90.89 Acquired absence of other organs
CPT/HCPCS: 88305; 58558; J2250; J1100; J2405; J2001; J3010; J1885; J2704; J1170

== ENCOUNTER → 2024-06-21 | Outpatient (CLI) | payer OTHER ==
--- NOTE | 2024-06-22 19:10 | MM ---
Reason for Exam: Screening (asymptomatic). Last mammogram was performed 5 year(s) and 1 month(s) ago. Patient History: Menarche at age 14. First Full-Term at age 29. Premenopausal. Patient has history of breast feeding. Other cancer. Last menstrual period: 05/14/2024 Risk Values: Luciana 5 year model risk: 0.7%. NCI Lifetime model risk: 10.9%. Prior Study Comparison: 05/31/2019 Bilateral Screening Mammogram, [facility]. Tissue Density: The breasts are extremely dense, which lowers the sensitivity of mammography. Findings: Analyzed By CAD. A few benign round calcifications on both sides are unchanged. There is no suspicious group of microcalcifications or new suspicious mass in either breast. Overall Assessment: Benign, BI-RAD 2 Management: Screening Mammogram of both breasts in 1 year. Given the patient's extremely dense breast tissue, consideration can be given to supplementary screening with breast ultrasound. Patient should continue monthly self-breast exams. A clinical breast exam by your physician is recommended on an annual basis. This exam should not preclude additional follow-up of suspicious palpable abnormalities. Note on Luciana scores and lifetime risk: 1. A Luciana score greater than 3% is considered moderate risk. If this is the case, consider specialist referral to assess eligibility for a risk reducing agent. 2. If overall lifetime risk for the development of breast cancer is 20% or higher, the patient may qualify for future screening with alternating mammogram and breast MRI. [facility], , 06/22/2024 7:07 PM. Electronically signed and approved by: Romi Simon M.D. Radiologist
== END | disposition home or self-care (01) ==
LOC: RADMAMWWP 09:19
PROVIDERS: ATTEND Obstetrics & Gynecology
CPT/HCPCS: 77067

== ENCOUNTER → 2024-09-06 | Outpatient (CLI) | payer OTHER ==
[2024-09-06 22:00] LABS: Blood Urea Nitrogen 8.9 mg/dL (9.0-27.0); Carbon Dioxide 24.8 mmol/L (21.6-31.8); Chloride 103 mmol/L (96-109); Glucose 91 mg/dL (70-110); Potassium 4.3 mmol/L (3.5-5.5); Sodium 140 mmol/L (135-145)
[2024-09-06 23:15] LABS: Basophils # (A) 0.08 X 10*3/uL (0.00-0.10); Basophils % (A) 0.8 %; Eosinophils # (A) 0.06 X 10*3/uL (0.04-0.35); Eosinophils % (A) 0.6 %; HCT 42.7 % (37.2-46.3); HGB 14.5 g/dL (12.0-15.0); Lymphocytes # (A) 2.63 X 10*3/uL (0.90-5.00); Lymphocytes % (A) 24.9 %; MCH 32.4 pg (27.0-32.0); MCV 95.3 FL (80.0-97.0); Mean Platelet Volume 11.1 FL (9.5-12.2); Monocytes # (A) 0.63 X 10*3/uL (0.20-1.00); NRBC Per 100 WBC 0 X 10*3/uL (0.00-0.01); Neutrophils # (A) 7.11 X 10*3/uL (1.80-7.70); Neutrophils % (A) 67.3 %; Platelet Count 254 X 10*3/uL (140-440); RBC 4.48 X 10*6/uL (4.10-5.20); RDW 12.7 % (11.5-14.5); WBC 10.55 X 10*3/uL (4.50-10.00)
== END | disposition home or self-care (01) ==
LOC: LABPAT 16:24
PROVIDERS: ATTEND Obstetrics & Gynecology
DX: Z01.812 Encounter for preprocedural laboratory examination (principal)
CPT/HCPCS: 80051; 82565; 82947; 83735; 84520; 85025; 86850; 86900; 86901; 87086

== ENCOUNTER 2024-09-13 05:44 | Day surgery (SDC) | payer OTHER ==
[2024-09-07 13:49] VITALS: BMI 20.5
[2024-09-13] MEDS ORDERED: LIDOCAINE 1% (10MG/ML) FOR IV START INTRADERMA PRN (06:05)
[2024-09-13] MEDS: IV FLUID CONTINUATION 1,000 ML IV ONE (06:46)
[2024-09-13] MEDS: LACTATED RINGERS 1,000 ML IV SCH (06:48)
[2024-09-13] MEDS: ONDANSETRON 4 MG/2 ML VIAL IVP ONE (06:48)
[2024-09-13] MEDS: DEXAMETHASONE SOD PHOSPHATE 4 MG/ML 1 ML VIAL IV ONE (06:48)
[2024-09-13] MEDS: MIDAZOLAM 2 MG/2 ML VIAL IV ONE (06:56)
--- NOTE | 2024-09-13 07:18 | P.HPOB ---
History of Present Illness H&P Date: 09/13/24 Chief Complaint: dysmenorrhea,menorrhagia 44 year old Presents for laparoscopic vaginal hysterectomy and bilateral salpingectomy using da Jerry and diagnostic cystoscopy. Possible removal of endometriosis possible total abdominal hysterectomy bilateral salpingo-oophorectomy Review of Systems All systems: negative Constitutional: Denies chills, Denies fever Eyes: denies blurred vision, denies pain Ears, nose, mouth and throat: Denies headache, Denies sore throat Cardiovascular: Denies chest pain, Denies shortness of breath Respiratory: Denies cough Gastrointestinal: Denies abdominal pain, Denies diarrhea, Denies nausea, Denies vomiting Genitourinary: Denies dysuria, Denies hematuria Musculoskeletal: Denies myalgias Integumentary: Denies pruritus, Denies rash Neurological: Denies numbness, Denies weakness Psychiatric: Denies anxiety, Denies depression Endocrine: Denies fatigue, Denies weight change Past Medical History Past Medical History: Cancer Additional Past Medical History / Comment(s): Hx thyroid cancer with thyroidectomy. Heavy frequent periods. Prone to migrianes. History of Any Multi-Drug Resistant Organisms: None Reported Past Surgical History: Appendectomy, Section, Uterine Ablation Additional Past Surgical History / Comment(s): Thyroidectomy, D&C. Past Anesthesia/Blood Transfusion Reactions: Previous Problems w/ Anesthesia Additional Past Anesthesia/Blood Transfusion Reaction / Comment(s): Anesthesia triggers migraines. Smoking Status: Current every day smoker - Past Family History Mother Family Medical History: No Reported History Father Family Medical History: AFIB Brother(s) Family Medical History: Cancer Medications and Allergies Home Medications Medication Instructions Recorded Confirmed Type Levothyroxine Sodium 137 mcg PO DAILY 05/11/24 09/13/24 History Allergies Allergy/AdvReac Type Severity Reaction Status Date / Time bacitracin Allergy Rash/Hives Verified 09/13/24 06:11 [From Neosporin ([id number])] erythromycin base Allergy Rash/Hives Verified 09/13/24 06:11 neomycin Allergy Rash/Hives Verified 09/13/24 06:11 [From Neosporin ([id number])] Penicillins Allergy Rash/Hives Verified 09/13/24 06:11 polymyxin B Allergy Rash/Hives Verified 09/13/24 06:11 [From Neosporin ([id number])] Exam Osteopathic Statement: *. No significant issues noted on an osteopathic structural exam other than those noted in the History and Physical/Consult. Vital Signs Temp Pulse Resp BP Pulse Ox 09/13/24 07:05 82 16 102/71 96 09/13/24 06:22 97.7 F 95 14 118/87 100 Intake and Output 09/12/24 09/13/24 09/13/24 22:59 06:59 14:59 Other: Weight 56.1 kg Heart: Regular rate and rhythm Lungs: Clear to auscultation bilaterally Abdomen: Soft, nontender Extremities: Negative Homans sign Assessment and Plan (1) Dysmenorrhea Current Visit: Yes Status: Acute Code(s): N94.6 - DYSMENORRHEA, UNSPECIFIED SNOMED Code(s): 961983766 (2) Menorrhagia Current Visit: No Status: Acute Code(s): N92.0 - EXCESSIVE AND FREQUENT MENSTRUATION WITH REGULAR CYCLE SNOMED Code(s): 345173269 Plan: 1. Robotic assisted laparoscopic vaginal hysterectomy with bilateral salpingectomy using da Jerry diagnostic cystoscopy possible removal of endometriosis possible LINCOLN/BSO
[2024-09-13] MEDS ORDERED: SUCCINYLCHOLINE CHLORIDE 200 MG/10 ML VIAL IV ONE (07:27)
[2024-09-13] MEDS ORDERED: MORPHINE SULFATE (PF) 0.3 MG/0.3 ML SYR ONE (07:27)
[2024-09-13] MEDS ORDERED: KETOROLAC 30 MG/ML 1 ML VIAL ONE (07:27)
[2024-09-13] MEDS ORDERED: HYDROmorphone (PF) 1 MG/ML ONE (07:27)
[2024-09-13] MEDS ORDERED: ROCURONIUM 10 MG/ML (5 ML VIAL) IV ONE (07:27)
[2024-09-13] MEDS ORDERED: fentaNYL (PF) 50 MCG/ML 2 ML AMP ONE (07:27)
[2024-09-13] MEDS ORDERED: NEOSTIGMINE 1 MG/ML 10 ML VIAL ONE (07:27)
[2024-09-13] MEDS ORDERED: GLYCOPYRROLATE 0.2 MG/ML 2 ML VIAL ONE (07:27)
[2024-09-13] MEDS ORDERED: MIDAZOLAM 2 MG/2 ML VIAL ONE (07:27)
[2024-09-13] MEDS ORDERED: LIDOCAINE 1% INJ 10MG/ML (20 ML MDV) ONE (07:27)
[2024-09-13] MEDS ORDERED: PROPOFOL 10 MG/ML 20 ML VIAL IV ONE (07:27)
[2024-09-13] MEDS: BUPIVACAINE (PF) 0.25% 30 ML VIAL SQ ONE ×2 (08:30→08:48)
[2024-09-13] MEDS: HYDROmorphone 0.5 MG/0.5 ML SYRINGE IVP PRN (09:09)
[2024-09-13] MEDS ORDERED: diphenhydrAMINE 25 MG CAP PO PRN (09:11)
[2024-09-13] MEDS ORDERED: ONDANSETRON 4 MG/2 ML VIAL IVP PRN (09:11)
[2024-09-13] MEDS ORDERED: METOCLOPRAMIDE 5 MG/ML 2 ML VIAL IVP PRN (09:11)
[2024-09-13] MEDS: SODIUM CHLORIDE 0.9% 1,000 ML IV ONE (09:30)
[2024-09-13] MEDS ORDERED: LACTATED RINGERS 1,000 ML IV SCH (10:45)
[2024-09-13] MEDS: diphenhydrAMINE 50 MG/ML 1 ML VIAL IVP PRN (11:36)
--- NOTE | 2024-09-13 14:51 | P.ANPRN ---
Procedure Note - Anesthesia - Epidural/Spinal Spinal Time Out Performed: Yes Date of Procedure: 09/13/24 Procedure Start Time: 06:55 Procedure Stop Time: 06:59 Location of Patient: PreOp Indication: Acute Post-Operative Pain Sedation Type: Sedate with meaningful contact maintained Preparation: Sterile Dressing Position: Sitting Needle Guage: 25 Blood Aspirated: No Pain Paresthesia on Injection Noted: No Events: Uneventful and Well Tolerated (Duramorph 50 mics plus fentanyl 25 mics given intrathecally)
[2024-09-13] MEDS: ACETAMINOPHEN TAB 500 MG TAB PO SCH (16:00)
[2024-09-13] MEDS: IBUPROFEN 800 MG TAB PO SCH (16:00)
[2024-09-13] MEDS: KETOROLAC 15 MG/ML 1 ML VIAL IVP PRN (17:37)
[2024-09-13] MEDS: droPERidol 5 MG/2 ML VIAL IVP ONE (20:24)
[2024-09-13] MEDS: SCOPOLAMINE 1 MG/72 HR PATCH TRANSDERM ONE (20:25)
[2024-09-13] MEDS: LACTATED RINGERS 500 ML IV SCH (20:27)
[2024-09-13] MEDS: SENNOSIDES-DOCUSATE SODIUM 1 EACH TAB PO SCH (20:36)
[2024-09-14] MEDS: LEVOTHYROXINE 137 MCG TAB PO SCH (05:56)
[2024-09-14 06:16] LABS: Basophils % (A) 0 %; Eosinophils # (A) 0.2 k/uL (0-0.7); Eosinophils % (A) 2 %; HCT 33.5 % (34.0-46.0); HGB 11.4 gm/dL (11.4-16.0); Lymphocytes # (A) 1.4 k/uL (1.0-4.8); Lymphocytes % (A) 10 %; MCH 33.2 pg (25.0-35.0); MCHC 34.1 g/dL (31.0-37.0); MCV 97.2 fL (80.0-100.0); Mean Platelet Volume 8.4; Monocytes # (A) 0.6 k/uL (0-1.0); Monocytes % (A) 4 %; Neutrophils # (A) 11.4 k/uL (1.3-7.7); Neutrophils % (A) 83 %; Platelet Count 168 k/uL (150-450); RBC 3.45 m/uL (3.80-5.40); RDW 12.7 % (11.5-15.5); WBC 13.7 k/uL (3.8-10.6)
--- NOTE | 2024-09-14 07:47 | P.OP ---
Date of Procedure: 09/13/24 Preoperative Diagnosis: 1. dysmenorrhea 2. menorrhagia Postoperative Diagnosis: same and extensive pelvic adhesions Procedure(s) Performed: Robotic Assisted laparoscopic vaginal hysterectomy bilateral salpingectomy and extensive lysis of adhesions using da Jerry and diagnostic cystoscopy Anesthesia: JOSÉ Surgeon: Freda Badillo Emt Driver #1: Katherine Chin Estimated Blood Loss (ml): 15 IV fluids (ml): 600 Urine output (ml): 150 Pathology: other (uterus,cervix, bilateral fallopian tubes) Condition: stable Disposition: PACU Operative Findings: Extensive adhesions from the posterior uterus to the rectum and posterior abdominal wall Description of Procedure: Patient taken the operating room where general anesthesia was obtained without difficulty. She is prepped and draped in normal sterile fashion dorsal lithotomy position, legs placed in the Matt stirrups. Weighted speculum placed in the vagina and the anterior lip the cervix was grasped with single-tooth ten aculum. The uterus sounded to 6 cm and the cervix diameter was 3.5 cm. The appropriate manipulator tip and ring were placed on the Allie manipulator. The Allie manipulator was then placed in the uterus. James catheter was also placed. Attention was then turned to the abdomen and gloves were changed. A 5 mm supraumbilical incision was made the scalpel and a 5 mm optical trocar was placed under direct visualization. 10 cm to the right of this and 2 cm down a 5 mm incision was made and 8 mm da Jerry port was placed under direct visualization. Same measurements on the opposite side of the patient's abdomen, the 5 mm incision was made and 8 mm da Jerry port was placed under direct visualization. In the left upper quadrant a 10 mm incision was made and a 10 mm optical trocar was placed under direct visualization. The 5 mm optical trocar was then replaced with the 8 mm da Jerry camera port. The robot was docked on patient's right side. The camera was introduced and then the monopolar curved scissor and Vessel sealer placed under direct visualization. Was noted that the Allie was in the wrong position so I did go down and remove the Allie and placed a medium Vcare manipulator. I broke scrub and went to the physician console. Extensive adhesions in the posterior cul-de-sac to the rectum and to the posterior pelvis. These were taken down using the monopolar curved scissors. The left mesosaplpinx was sealed and cut using the vessel sealer. The left round ligament was sealed and cut with the vessel sealer. The posterior leaf of the broad ligament was taken down using the monopolar curved scissors. Anterior leaf of the broad ligament was then taken down using the monopolar curved scissors. The uterine artery was sealed and cut using the vessel sealer. The bladder flap was then started using the monopolar curved scissors. Attention was then turned to the right side of the patient's anatomy and the right mesosalpinx was sealed and cut using the vessel sealer. The right round ligament was cauterized with the [place] bipolar and cut with monopolar curved scissors. Posterior leaf of the broad ligament was taken down using the monopolar curved scissors and the anterior leaf was taken down using the monopolar curved scissors. The uterine artery was sealed and cut with the vessel sealer. The bladder flap was then finished on this side. Anterior colpotomy was made using the monopolar curved scissors. The rest of the uterus was from the vaginal cuff by following the ring around with the monopolar curved scissors through the uterosacral ligaments back to the anterior portion. Once the uterus and cervix were amputated they were pulled through the vaginal cuff. Hemostasis was assured. The instruments were changed for the Cardier forcep and the deandra suture cut. The vaginal cuff was then closed using O stratafix barbed suture in a running fashion. Hemostasis was again assured and the pelvis was irrigated. All instruments were removed from the abdomen and the robot was undocked. I scrubbed back in to perform a cystoscopy. There were jets from both ureteral orifices. The abdominal incisions were closed with 4-0 Vicryl in a subcuticular fashion. Patient tolerated the procedure well, sponge and instrument counts correct 2 and she was taken to recovery room in stable condition condition
--- NOTE | 2024-09-14 07:49 | P.DS ---
Providers Expected date of discharge: 09/14/24 Attending physician: Freda Badillo Primary care physician: Stated None - Discharge Diagnosis(es) (1) Dysmenorrhea Current Visit: Yes Status: Resolved (2) Menorrhagia Current Visit: No Status: Resolved (3) Status post robot-assisted surgical procedure Current Visit: Yes Status: Acute Hospital Course: Presented for robotic assisted laparoscopic vaginal hysterectomy and diagnostic cystoscopy. She underwent this procedure with also extensive lysis of adhesions. Postoperatively patient is doing rather well. She is voiding and ambulating without difficulty, passing flatus. Her pain is well-controlled. She denies nausea, vomiting, chest pain, shortness of breath or calf pain. Incisions are clean, dry, intact. Patient will be discharged home postoperative day #1 in stable condition to follow-up with me in 3 weeks. Plan - Discharge Summary Discharge Rx Participant: Yes New Discharge Prescriptions: No Action Levothyroxine Sodium 137 mcg PO DAILY Discharge Medication List Levothyroxine Sodium 137 mcg PO DAILY 05/11/24 [History] Follow up Appointment(s)/Referral(s): Freda Badillo DO [Doctor of Osteopathic Medicine] - 3 Weeks Discharge Disposition: HOME SELF-CARE
[2024-09-14 08:19] VITALS: BP 92/52; PULSE 88; RESP 18; TEMP 98.7
--- NOTE | 2024-09-14 12:52 | P.PN ---
Progress Note - Text 09/14/24 632am 44-year-old female status post vaginal hysterectomy, patient received spinal Duramorph for postop pain control, she has a VAS of 8, no complaints of nausea vomiting or pruritus
== END 2024-09-14 11:16 | disposition home or self-care (01) ==
LOC: OR 05:44 → 4FBP 08:50 → OR 09-14 11:16
PROVIDERS: ATTEND Obstetrics & Gynecology
DX: N92.0 Excessive and frequent menstruation with regular cycle (principal); N94.6 Dysmenorrhea, unspecified; N80.9 Endometriosis, unspecified; N80.03 Adenomyosis of the uterus; N73.6 Female pelvic peritoneal adhesions (postinfective); Z85.850 Personal history of malignant neoplasm of thyroid; Z90.89 Acquired absence of other organs; Z90.49 Acquired absence of other specified parts of digestive tract; Z98.891 History of uterine scar from previous surgery; F17.200 Nicotine dependence, unspecified, uncomplicated; Z88.1 Allergy status to other antibiotic agents; Z88.0 Allergy status to penicillin; Z79.890 Hormone replacement therapy
CPT/HCPCS: 58552; S2900; 81025; 85025; 88307

== ENCOUNTER → 2025-01-14 | Outpatient (CLI) | payer OTHER ==
--- NOTE | 2025-01-14 07:54 | USB ---
Reason for Exam: Clinical finding. Patient History: Menarche at age 14. First Full-Term at age 29. Premenopausal. Patient has history of breast feeding. Other cancer. Risk Values: Luciana 5 year model risk: 0.8%. NCI Lifetime model risk: 10.8%. Technique: Method: Targeted. Prior Study Comparison: 05/31/2019 Bilateral Screening Mammogram, [facility]. 06/21/2024 Bilateral MG screening mammo w CAD, [facility]. Findings: The upper inner quadrant of the left breast, the axilla of the left breast and the retroareolar of the left breast were scanned. Targeted ultrasound. At palpable abnormality 9:00 position 3 cm distance from nipple there is 1.8 x 1.2 x 2.0 cm circumscribed hypoechoic avascular mass with increased through transmission.. Overall Assessment: Suspicious, BI-RAD 4 Management: Ultrasound Core Biopsy of the left breast. While the lesion is likely a fibroadenoma, tissue confirmation is advised due to palpable abnormality and 2.0 cm size. A clinical breast exam by your physician is recommended on an annual basis and results should be correlated with mammographic findings. This exam should not preclude additional follow-up of suspicious palpable abnormalities. Results were given to the patient verbally at the time of exam. [facility], , 01/14/2025 7:47 AM. Electronically signed and approved by: Hank Bustos M.D.
== END | disposition home or self-care (01) ==
LOC: RADUSWWP 07:24
PROVIDERS: ATTEND Obstetrics & Gynecology
DX: R68.89 Other general symptoms and signs (principal)

== ENCOUNTER → 2025-01-26 | Day surgery (SDC) | payer OTHER ==
--- NOTE | 2025-02-07 11:05 | MM ---
Reason for Exam: Post Procedure Mammogram. Last screening mammogram was performed 7 month(s) ago. Patient History: Menarche at age 14. First Full-Term at age 29. Premenopausal. Patient has history of breast feeding. Other cancer. Risk Values: Luciana 5 year model risk: 0.8%. NCI Lifetime model risk: 10.8%. Prior Study Comparison: 05/31/2019 Bilateral Screening Mammogram, [facility]. 06/21/2024 Bilateral MG screening mammo w CAD, [facility]. 01/14/2025 Left US breast limited LT, [facility]. Tissue Density: Left: The breasts are extremely dense, which lowers the sensitivity of mammography. Pathology Description: Location: 9 o'clock. Marker Left Behind. Cores: 3 Skin Nicks: 1 Gauge: 18 The procedure of ultrasound guided core biopsy was explained to the patient. Benefits, alternatives, and risks were discussed. An informed consent was then obtained. A time out was performed at 7:45 AM. The patient was placed in supine positioning for imaging and for the procedure. The overlying skin was prepped and draped in usual sterile fashion. 5 ml 1% lidocaine buffered with bicarbonate was used as anesthetic into the skin and subcutaneous tissue up to area of concern in the left 9 o'clock breast, 4.8 cm from nipple. A kamila was made with surgical scalpel. Under ultrasound guidance, a 12-gauge vacuum assisted biopsy gun device was used to obtain 3 core samples. Following this, a coil biopsy clip was left in the lesion. The patient tolerated the procedure well without any immediate complication. The patient was discharged home in stable condition. Postprocedure mammogram: The patient was transferred to mammography for physician ordered post procedure mammogram for clip placement verification. Post procedure mammogram demonstrates appropriate placement of clip. Impression: Successful, uncomplicated ultrasound guided core biopsy of area of concern in the left breast. [facility], , 01/26/2025 9:02 AM. Pathology Results: Result: Benign, Fibroadenoma. Pathology and radiology were reviewed. Findings are concordant. LEFT BREAST, 9:00, ULTRASOUND GUIDED CORE BIOPSY: Benign fibroadenoma. Overall Assessment: Benign Assessment: MG diagnostic mammo LT wo CAD. - Left: Benign, BI-RAD 2. Management: Surgical Consultation of the left breast. Electronically signed and approved by: Dexter Harrison M.D. Radiologis
== END ==
LOC: RADUSWWP 07:19
PROVIDERS: ATTEND Surgery
DX: D24.2 Benign neoplasm of left breast (principal); R92.8 Other abnormal and inconclusive findings on diagnostic imaging of breast
CPT/HCPCS: 88305; 77065; 19083; A4648

== ENCOUNTER 2025-03-14 07:49 | Day surgery (SDC) | payer OTHER ==
[~2025-03-14 07:49] MED LIST changes: +LIDOCAINE 1% (10MG/ML) FOR IV START INTRADERMA PRN; +droPERidol 2.5 MG/ML VIAL IVP ONE
[2025-03-14] MEDS: IV FLUID CONTINUATION 1,000 ML IV ONE (08:00)
[2025-03-14] MEDS: DEXAMETHASONE SOD PHOSPHATE 4 MG/ML 1 ML VIAL IV ONE (08:26)
[2025-03-14] MEDS: HEPARIN SODIUM,PORCINE 5,000 UNIT/ML 1 ML VIAL SQ PRN (08:26)
[2025-03-14] MEDS: LACTATED RINGERS 1,000 ML IV SCH (08:26)
[2025-03-14] MEDS: ONDANSETRON 4 MG/2 ML VIAL IVP ONE (08:26)
[2025-03-14] MEDS: ACETAMINOPHEN TAB 500 MG TAB PO PRN (08:26)
[2025-03-14] MEDS ORDERED: MIDAZOLAM 2 MG/2 ML VIAL ONE (08:48)
[2025-03-14] MEDS ORDERED: PROPOFOL 10 MG/ML 20 ML VIAL IV ONE (08:48)
[2025-03-14] MEDS ORDERED: KETOROLAC 15 MG/ML 1 ML VIAL ONE (08:48)
[2025-03-14] MEDS ORDERED: fentaNYL (PF) 50 MCG/ML 2 ML AMP ONE (08:48)
[2025-03-14] MEDS ORDERED: LIDOCAINE 1% INJ 10MG/ML (20 ML MDV) ONE (08:48)
--- NOTE | 2025-03-14 09:00 | P.GSHP ---
History of Present Illness H&P Date: 03/14/25 Chief Complaint: Left breast mass 45-year-old female seen in the office for left-sided breast mass. Had ultrasound core biopsy showing fibroadenoma. Patient concerned that the mass is growing and is painful often. Requesting excision which is quite reasonable. Past Medical History Past Medical History: Cancer, Thyroid Disorder Additional Past Medical History / Comment(s): thyroid cancer 2012 History of Any Multi-Drug Resistant Organisms: None Reported Past Surgical History: Appendectomy, Section, Hysterectomy Additional Past Surgical History / Comment(s): thyroidectomy Past Anesthesia/Blood Transfusion Reactions: No Reported Reaction Additional Past Anesthesia/Blood Transfusion Reaction / Comment(s): usually wakes up after anesthesia w/migraine Smoking Status: Current every day smoker - Past Family History Brother(s) Family Medical History: Cancer Medications and Allergies Home Medications Medication Instructions Recorded Confirmed Type Levothyroxine Sodium 137 mcg PO DAILY 05/11/24 03/14/25 History Multivitamins, Thera [Multivitamin 1 tab PO DAILY 03/10/25 03/14/25 History (formulary)] Allergies Allergy/AdvReac Type Severity Reaction Status Date / Time bacitracin Allergy Rash/Hives Verified 03/10/25 10:01 [From Neosporin ([id number])] erythromycin base Allergy Rash/Hives Verified 03/10/25 10:01 neomycin Allergy Rash/Hives Verified 03/10/25 10:01 [From Neosporin ([id number])] Penicillins Allergy Rash/Hives Verified 03/10/25 10:01 polymyxin B Allergy Rash/Hives Verified 03/10/25 10:01 [From Neosporin ([id number])] Surgical - Exam Vital Signs Temp Pulse Resp BP Pulse Ox 98.0 F 83 16 120/80 99 03/14/25 08:00 03/14/25 08:00 03/14/25 08:00 03/14/25 08:00 03/14/25 08:00 Physical exam: General: Well-developed, well-nourished HEENT: Normocephalic, sclerae nonicteric Right breast: No masses, no adenopathy Left breast: 2 cm mass left breast 9:00, no adenopathy Abdomen: Nontender, nondistended Extremities: No edema Neuro: Alert and oriented Assessment and Plan (1) Left breast mass Narrative/Plan: 45-year-old female with left-sided breast mass. Will proceed with excisional biopsy left breast at this time. Risks of bleeding, infection, scarring, recurrence reviewed. She understands and wishes to proceed. Current Visit: Yes Status: Acute Code(s): N63.20 - UNSPECIFIED LUMP IN THE LEFT BREAST, UNSPECIFIED QUADRANT SNOMED Code(s): 80407407
[2025-03-14] MEDS: BUPIVACAINE (PF) 0.25% 30 ML VIAL SQ ONE ×2 (09:03→09:11)
[2025-03-14] MEDS ORDERED: NALOXONE 0.4 MG/ML 1 ML VIAL IV PRN (09:41)
[2025-03-14] MEDS ORDERED: HYDROcodone/APAP 5-325MG 1 EACH TAB PO PRN (09:41)
[2025-03-14 09:44] VITALS: TEMP 97
--- NOTE | 2025-03-14 09:55 | P.OP ---
Date of Procedure: 03/14/25 Procedure(s) Performed: PREOPERATIVE DIAGNOSIS: Left breast mass POSTOPERATIVE DIAGNOSIS: Same PROCEDURE: Excisional biopsy left breast mass SURGEON: Raquel EBL: 5 cc ANESTHESIA: General COMPLICATIONS: None OPERATIVE PROCEDURE: Patient placed in the operating table in the supine position for the patient was placed under general anesthesia. A curvilinear incision was made along the areola border between 8 and 10:00. Dissection through the subcutaneous tissues directed laterally took place using electroc autery. Patient's 2 cm fibroadenoma was excised fully. This was sent to pathology. Subcutaneous tissues closed using 3-0 Vicryl sutures. Skin closed using interrupted 4-0 Monocryl sutures. Skin glue and sterile dressings applied. DISPOSITION: Stable to recovery room
[2025-03-14] MEDS: HYDROmorphone 0.5 MG/0.5 ML SYRINGE IVP PRN (09:57)
[2025-03-14 10:27] VITALS: RESP 16
[2025-03-14 10:44] VITALS: BP 118/71; PULSE 62
== END 2025-03-14 11:03 ==
LOC: OR 07:49
PROVIDERS: ATTEND Surgery
DX: D24.2 Benign neoplasm of left breast (principal); E89.0 Postprocedural hypothyroidism; F41.9 Anxiety disorder, unspecified; F17.200 Nicotine dependence, unspecified, uncomplicated; Z79.890 Hormone replacement therapy; Z85.850 Personal history of malignant neoplasm of thyroid; Z88.1 Allergy status to other antibiotic agents; Z88.0 Allergy status to penicillin
CPT/HCPCS: 19120; J2250; J1644; J1100; J0690; J2405; J2003; J3010; J1885; J2704; J1171; J0665; 88305